=== PATIENT | male | born 1955 | race American Indian/Alaskan Native ===

== ENCOUNTER 2018-03-23 13:07 | Emergency (ER) | payer MEDICARE ==
[~2018-03-23] VITALS: Ht 193 cm; Wt 108.9 kg
[~2018-03-23 13:07] MED LIST: CODE30 PO; CYAN100 PO; ESCI10 PO; FOLI400 PO; GREEN TEA PO; HYDACE5 PO; LORA2 PO; MILK THISTLE PO; MULVITMINF PO; NAPR500 PO; NITR.4SL SL; OXYC5 PO; PYRI100 PO; ZINC15 PO; [UNRECOGNIZED DRUG - OTHER] PO
[2018-03-23] MEDS ORDERED: PROC5 PO (13:40)
== END 2018-03-23 13:58 | disposition home or self-care (01) ==
LOC: ER 13:07
DX: F11.23 Opioid dependence with withdrawal (principal); F10.129 Alcohol abuse with intoxication, unspecified; Z88.8 Allergy status to other drugs, medicaments and biological substances; Z79.899 Other long term (current) drug therapy; F17.290 Nicotine dependence, other tobacco product, uncomplicated
CPT/HCPCS: 99284

== ENCOUNTER 2018-04-05 06:21 | Inpatient (IN) | payer MEDICARE ==
[~2018-04-05] VITALS: Ht 182.9 cm; Wt 98.6 kg
[~2018-04-05 06:21] MED LIST changes: +PROC5 PO
[2018-04-05 07:53] LABS: BASOPHILS ABSOLUTE AUTO 0.02 K/mm3 (0.00-0.23); BASOPHILS PERCENT AUTO 0 % (0-2); EOSINOPHILS PERCENT AUTO 0 % (0-6); Hematocrit 45.3 % (37.0-53.0); Hemoglobin 15.9 g/dL (13.5-17.5); IMMATURE GRAN ABSOLUTE AUTO 0.04 K/mm3 (0.00-0.10); IMMATURE GRAN PERCENT AUTO 1 % (0-1); LYMPHOCYTES ABSOLUTE AUTO 0.67 K/mm3 (0.84-5.20); LYMPHOCYTES PERCENT AUTO 10 % (21-46); MONOCYTES ABSOLUTE AUTO 0.53 K/mm3 (0.16-1.47); MONOCYTES PERCENT AUTO 8 % (4-13); Mean Corpuscular HGB 35.5 pg (26.0-34.0); Mean Corpuscular HGB Conc 35.1 g/dL (31.5-36.5); Mean Corpuscular Volume 101 fL (80-100); Mean Platelet Volume 11.4 fL (9.1-12.4); NEUTROPHILS ABSOLUTE AUTO 5.44 K/mm3 (1.96-9.15); NEUTROPHILS PERCENT AUTO 81 % (41-73); Platelet Count 54 K/mm3 (150-400); RDW Coefficient Variation 15.5 % (11.7-14.2); RDW Standard Deviation 58.3 fL (35.1-46.3); Red Blood Cell Count 4.48 M/mm3 (4.30-5.90)
[2018-04-05 08:09] LABS: Alanine Aminotransfer (ALT/SGP 29 U/L (12-78); Albumin, Blood 3.7 g/dL (3.4-5.0); Albumin/Globulin Ratio 1.1 (0.8-1.8); Alk Phos 110 U/L (50-136); Anion Gap 12 mmol/L (6-16); Aspartate Aminotrans (AST/SGOT 45 U/L (12-37); Bilirubin, Total 2.1 mg/dL (0.1-1.0); Blood Urea Nitrogen 9 mg/dL (8-24); CO2, Blood 21 mmol/L (21-32); CPK Creatine Kinase 242 U/L (39-308); Chloride, Blood 109 mmol/L (98-108); Creatinine, Blood 0.82 mg/dL (0.60-1.20); Globulin, Blood 3.5 g/dL (2.2-4.0); Glomerular Filtration Rate >60 (60-); Glucose, Blood 120 mg/dL (70-99); Potassium, Blood 3.6 mmol/L (3.5-5.5); Sodium, Blood 142 mmol/L (136-145); Total Protein, Blood 7.2 g/dL (6.4-8.2)
[2018-04-05 08:29] LABS: International Normalized Ratio 1.35; Prothrombin Time Results 13.9 Sec (9.7-11.5)
--- NOTE | 2018-04-05 18:51 | NUR ---
PT HAS BEEN STABLE SINCE ADMISSION. ORTHO IN TO CONCULT, NO SURGERY UNTIL SATURDAY DUE TO RESULTS OF BLOOD WORK. PT STATES HE IS CHRONICALLY LOW PLATELETS. CIWA SCORES HAVE BEEN 0-2. CONT IV FLUIDS. PT EATING REG DIET. VOIDING WITH URINAL. PT NEEDS UA COLLECTED. CLEAN URINAL PLACED AT BEDSIDE. PAIN CONTROLLED WITH IV DILAUDID. PT MAY HAVE BUCKS TRACTION PLACED PRN FOR PAIN. PLAN FOR REPEAT IMAGING IN THE AM. PAS PLACED. TELE AFIB/FLUTTER. PT USES CALL LIGHT APPROPRIATELY PRN.
[2018-04-05 21:40] LABS: Bilirubin, Urine Neg (Neg); Blood, Urine 2+ (Neg); Glucose Qualitative, Urine Neg (Neg); Ketones, Urine Neg (Neg); Leukocyte Esterase, Urine 3+ (Neg); Nitrite, Urine Neg (Neg); Protein, Urine Neg (Neg); Urobilinogen, Urine 1+ (Normal)
[2018-04-05 21:51] LABS: Appearance, Urine Cloudy (Clear); Color, Urine Yellow (P-Yellow)
[2018-04-05 21:52] LABS: White Blood Cells, Urine 25-50 /hpf (0-5)
[2018-04-05 21:53] LABS: Bacteria Many /hpf; Squamous Epithelial Cells Rare /hpf (Few)
--- NOTE | 2018-04-06 02:17 | NUR ---
REPORT GIVEN TO FABBY JUDD WHO WILL BE RESUMING CARE OF PATIENT.
--- NOTE | 2018-04-06 02:41 | NUR ---
APPROX. 0215, REPORT FROM OS, RN. PT ASSESSED, PAIN AND NAUSEA MANGED PER EMAR. CALL LIGHT IN REACH. WCTM.
--- NOTE | 2018-04-06 04:50 | NUR ---
SHIFT SUMMARY RECEIVED REPORT AND ASSUMED CARE OF PT APPROX. 0200. PAIN IN LLE MANAGED PER EMAR. PPP X4; PER PT N/T IN FEET BASELINE. NAUSEA MANGED PER EMAR. BLE ELEVATED; PT ENCOURAGED TO MAKE ADJUSTMENTS TO POSITION TO PREVENT PRESSURE WOUNDS; ASSISTED PRN. RA, MINIES SOB AND CP; TELEMETRY IN PLACE, A FLUTTER PER STORE PROTECTION SPECIALIST. CALL LIGHT IN REACH; PT DEMONSTRATES USE. SIDE RAILS X3 FOR SAFETY. WCTM UNTIL REPORT TO DAY SHIFT RN.
[2018-04-06 06:29] LABS: BASOPHILS ABSOLUTE AUTO 0.03 K/mm3 (0.00-0.23); BASOPHILS PERCENT AUTO 1 % (0-2); EOSINOPHILS ABSOLUTE AUTO 0.08 K/mm3 (0.00-0.68); EOSINOPHILS PERCENT AUTO 2 % (0-6); Hematocrit 36.6 % (37.0-53.0); Hemoglobin 12.7 g/dL (13.5-17.5); IMMATURE GRAN ABSOLUTE AUTO 0.01 K/mm3 (0.00-0.10); IMMATURE GRAN PERCENT AUTO 0 % (0-1); LYMPHOCYTES ABSOLUTE AUTO 1.24 K/mm3 (0.84-5.20); LYMPHOCYTES PERCENT AUTO 29 % (21-46); MONOCYTES ABSOLUTE AUTO 0.71 K/mm3 (0.16-1.47); MONOCYTES PERCENT AUTO 17 % (4-13); Mean Corpuscular HGB 34.8 pg (26.0-34.0); Mean Corpuscular HGB Conc 34.7 g/dL (31.5-36.5); Mean Corpuscular Volume 100 fL (80-100); Mean Platelet Volume 11.2 fL (9.1-12.4); NEUTROPHILS PERCENT AUTO 52 % (41-73); RDW Coefficient Variation 15.5 % (11.7-14.2); RDW Standard Deviation 56.8 fL (35.1-46.3); Red Blood Cell Count 3.65 M/mm3 (4.30-5.90); White Blood Cell Count 4.27 K/mm3 (4.00-11.30)
[2018-04-06 06:42] LABS: International Normalized Ratio 1.41; Prothrombin Time Results 14.5 Sec (9.7-11.5)
[2018-04-06 06:43] LABS: Anion Gap 6 mmol/L (6-16); Blood Urea Nitrogen 8 mg/dL (8-24); Bun/Creatinine Ratio 10.3 (12.0-20.0); CO2, Blood 29 mmol/L (21-32); Calcium, Blood 7.7 mg/dL (8.5-10.1); Chloride, Blood 103 mmol/L (98-108); Creatinine, Blood 0.78 mg/dL (0.60-1.20); Glomerular Filtration Rate >60 (60-); Glucose, Blood 108 mg/dL (70-99); Potassium, Blood 3.8 mmol/L (3.5-5.5); Sodium, Blood 138 mmol/L (136-145)
[2018-04-06 07:16] LABS: Platelet Count 37 K/mm3 (150-400)
--- NOTE | 2018-04-06 07:50 | NUR ---
CRITICAL PLT VALUE. RECENTLY RECIEVED CRITICAL PLT VALUE OF 37 PER HS METAL PICKLING EQUIPMENT OPERATOR H.H.. DR ROY NOTIFIED. NO NEW ORDERS.
[2018-04-06 08:29] LABS: BASOPHILS ABSOLUTE AUTO 0.03 K/mm3 (0.00-0.23); BASOPHILS PERCENT AUTO 1 % (0-2); EOSINOPHILS PERCENT AUTO 2 % (0-6); Hematocrit 37.1 % (37.0-53.0); Hemoglobin 12.9 g/dL (13.5-17.5); IMMATURE GRAN ABSOLUTE AUTO 0.01 K/mm3 (0.00-0.10); IMMATURE GRAN PERCENT AUTO 0 % (0-1); LYMPHOCYTES ABSOLUTE AUTO 1.28 K/mm3 (0.84-5.20); LYMPHOCYTES PERCENT AUTO 31 % (21-46); MONOCYTES ABSOLUTE AUTO 0.68 K/mm3 (0.16-1.47); MONOCYTES PERCENT AUTO 16 % (4-13); Mean Corpuscular HGB 35.2 pg (26.0-34.0); Mean Corpuscular HGB Conc 34.8 g/dL (31.5-36.5); Mean Corpuscular Volume 101 fL (80-100); Mean Platelet Volume 11.1 fL (9.1-12.4); NEUTROPHILS PERCENT AUTO 50 % (41-73); RDW Coefficient Variation 15.3 % (11.7-14.2); RDW Standard Deviation 57.2 fL (35.1-46.3); Red Blood Cell Count 3.66 M/mm3 (4.30-5.90)
[2018-04-06 08:49] LABS: Platelet Count 36 K/mm3 (150-400)
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
--- NOTE | 2018-04-06 10:54 | NUR ---
DR MATSON HERE. DISCUSSED PT'S STATUS AND LABS.
--- NOTE | 2018-04-06 14:00 | NUR ---
DR ROY HERE TO SEE PT.
[2018-04-06 14:36] LABS: BASOPHILS ABSOLUTE AUTO 0.03 K/mm3 (0.00-0.23); BASOPHILS PERCENT AUTO 1 % (0-2); EOSINOPHILS ABSOLUTE AUTO 0.12 K/mm3 (0.00-0.68); EOSINOPHILS PERCENT AUTO 3 % (0-6); Hematocrit 33.9 % (37.0-53.0); Hemoglobin 12.1 g/dL (13.5-17.5); IMMATURE GRAN PERCENT AUTO 0 % (0-1); LYMPHOCYTES ABSOLUTE AUTO 0.97 K/mm3 (0.84-5.20); LYMPHOCYTES PERCENT AUTO 28 % (21-46); MONOCYTES PERCENT AUTO 17 % (4-13); Mean Corpuscular HGB 36.1 pg (26.0-34.0); Mean Corpuscular HGB Conc 35.7 g/dL (31.5-36.5); Mean Corpuscular Volume 101 fL (80-100); Mean Platelet Volume 11.1 fL (9.1-12.4); NEUTROPHILS ABSOLUTE AUTO 1.78 K/mm3 (1.96-9.15); NEUTROPHILS PERCENT AUTO 51 % (41-73); RDW Coefficient Variation 15.3 % (11.7-14.2); RDW Standard Deviation 57.4 fL (35.1-46.3); Red Blood Cell Count 3.35 M/mm3 (4.30-5.90)
[2018-04-06 14:42] LABS: Platelet Count 31 K/mm3 (150-400)
--- NOTE | 2018-04-06 15:13 | NUR ---
ECHO BEING COMPLETED.
--- NOTE | 2018-04-06 18:00 | NUR ---
SHIFT SUMMARY PT EATING AND DRINKING.PT VOIDING. PT BEEN ASSISTED WITH ADL'S PRN. PT BEEN SEEN BY HOSPITALIST AND DR MATSON TODAY. PT HAVING CRITICAL LOW PLT, 'S AWARE. PT TO BE NPO AFTER MIDNIGHT, PT AWARE, WRITTEN ON BOARD AND SIGN OUTSIDE ROOM. PT BEEN MED FOR PAIN. PT REPOSITIONING SELF IN BED USING OVERHEAD TRAPEZE.
--- NOTE | 2018-04-06 19:10 | NUR ---
NOTIFIED BY TELE OF RECENT EPISODE OF V-TACH OF 11 B. PT ASYMPTOMATIC. VS WNL. NOTIFIED. NO NEW ORDERS. WILL CONTINUE TO [facility].
[2018-04-06 20:09] LABS: BASOPHILS ABSOLUTE AUTO 0.02 K/mm3 (0.00-0.23); BASOPHILS PERCENT AUTO 1 % (0-2); EOSINOPHILS ABSOLUTE AUTO 0.11 K/mm3 (0.00-0.68); EOSINOPHILS PERCENT AUTO 3 % (0-6); Hematocrit 35.5 % (37.0-53.0); Hemoglobin 12.6 g/dL (13.5-17.5); IMMATURE GRAN PERCENT AUTO 0 % (0-1); LYMPHOCYTES ABSOLUTE AUTO 0.71 K/mm3 (0.84-5.20); LYMPHOCYTES PERCENT AUTO 20 % (21-46); MONOCYTES ABSOLUTE AUTO 0.56 K/mm3 (0.16-1.47); MONOCYTES PERCENT AUTO 16 % (4-13); Mean Corpuscular HGB 36.4 pg (26.0-34.0); Mean Corpuscular HGB Conc 35.5 g/dL (31.5-36.5); Mean Corpuscular Volume 103 fL (80-100); Mean Platelet Volume 11.5 fL (9.1-12.4); NEUTROPHILS ABSOLUTE AUTO 2.14 K/mm3 (1.96-9.15); NEUTROPHILS PERCENT AUTO 60 % (41-73); RDW Coefficient Variation 15.3 % (11.7-14.2); RDW Standard Deviation 57.5 fL (35.1-46.3); Red Blood Cell Count 3.46 M/mm3 (4.30-5.90); White Blood Cell Count 3.54 K/mm3 (4.00-11.30)
[2018-04-06 20:15] LABS: Platelet Count 33 K/mm3 (150-400)
[2018-04-06 20:25] LABS: Magnesium, Blood 1.5 mg/dL (1.6-2.4); Potassium, Blood 3.9 mmol/L (3.5-5.5)
[2018-04-07 04:14] LABS: BASOPHILS ABSOLUTE AUTO 0.03 K/mm3 (0.00-0.23); BASOPHILS PERCENT AUTO 1 % (0-2); EOSINOPHILS ABSOLUTE AUTO 0.15 K/mm3 (0.00-0.68); EOSINOPHILS PERCENT AUTO 4 % (0-6); Hematocrit 34.2 % (37.0-53.0); IMMATURE GRAN ABSOLUTE AUTO 0.01 K/mm3 (0.00-0.10); IMMATURE GRAN PERCENT AUTO 0 % (0-1); LYMPHOCYTES ABSOLUTE AUTO 1.22 K/mm3 (0.84-5.20); LYMPHOCYTES PERCENT AUTO 28 % (21-46); MONOCYTES ABSOLUTE AUTO 0.63 K/mm3 (0.16-1.47); MONOCYTES PERCENT AUTO 15 % (4-13); Mean Corpuscular HGB 35.7 pg (26.0-34.0); Mean Corpuscular HGB Conc 35.1 g/dL (31.5-36.5); Mean Corpuscular Volume 102 fL (80-100); Mean Platelet Volume 11.3 fL (9.1-12.4); NEUTROPHILS ABSOLUTE AUTO 2.29 K/mm3 (1.96-9.15); NEUTROPHILS PERCENT AUTO 53 % (41-73); RDW Coefficient Variation 15.1 % (11.7-14.2); RDW Standard Deviation 56.5 fL (35.1-46.3); Red Blood Cell Count 3.36 M/mm3 (4.30-5.90); White Blood Cell Count 4.33 K/mm3 (4.00-11.30)
[2018-04-07 04:37] LABS: Platelet Count 37 K/mm3 (150-400)
[2018-04-07 04:48] LABS: International Normalized Ratio 1.26; Prothrombin Time Results 13.1 Sec (9.7-11.5)
--- NOTE | 2018-04-07 04:52 | NUR ---
SHIFT SUMMARY: PT HAS DONE WELL THIS SHIFT. NPO FOR POSSIBLE SURGERY TODAY. PAIN MANAGED WITH DILAUDID Q2 PER EMAR. CIWA'S AT 2. PT REPOSITIONING SELF USING OVERHEAD TRAPEZE. VOIDING WELL USING URINAL. DR AWARE OF RECENT LOW PLT COUNTS. MOST RECENT AT 37. PLAN TO INFUSE 2 UNITS PRE-OP. PT RIPPED DNR WRISTBAND OFF AND REPORTS NOT WANTING TO BE A DNR ANYMORE. WILL DISCUSS WITH TEAM.
[2018-04-07 04:55] LABS: Alanine Aminotransfer (ALT/SGP 21 U/L (12-78); Albumin, Blood 2.7 g/dL (3.4-5.0); Alk Phos 88 U/L (50-136); Anion Gap 7 mmol/L (6-16); Aspartate Aminotrans (AST/SGOT 32 U/L (12-37); Blood Urea Nitrogen 9 mg/dL (8-24); Bun/Creatinine Ratio 11.2 (12.0-20.0); CO2, Blood 30 mmol/L (21-32); Calcium, Blood 7.7 mg/dL (8.5-10.1); Chloride, Blood 103 mmol/L (98-108); Creatinine, Blood 0.81 mg/dL (0.60-1.20); Globulin, Blood 2.8 g/dL (2.2-4.0); Glomerular Filtration Rate >60 (60-); Glucose, Blood 103 mg/dL (70-99); Potassium, Blood 4.1 mmol/L (3.5-5.5); Sodium, Blood 140 mmol/L (136-145); Total Protein, Blood 5.5 g/dL (6.4-8.2)
--- NOTE | 2018-04-07 11:07 | NUR ---
Patient was lying in bed and alert when I entered the patient's room. I introduced myself and patient seemed genuinely pleased to have a visit from spiritual care. Patient stated that he was nerveous about his upcoming surgery. I listened empathically, conducted a brief life review and then the doctor came in and I cut our visit short. I visited another patient and returned and provided prayer for patient's upcoming surgery. Patient also prayed for me. Patient showed signs of reduced stress and expressed gratitude for the visit.
--- NOTE | 2018-04-07 11:48 | NUR ---
PT MEDICATED WITH 1MG DILAUDID IV PER ORDERS. PT STATES PAIN IS 10/10. ABX STARTED. CALL LIGHT IN REACH. PT REQUESTING SOME NEOSPORIN AND DRESSING FOR SORE TO LEFT FA. WILL PROVIDE. WILL CONT TO MONITOR.
--- NOTE | 2018-04-07 18:57 | NUR ---
SHIFT SUMMARY PAIN HAS BEEN ELEVATED THIS SHIFT. PT HAS REQUIRED IV AND PO PAIN MEDICATION. CIWA SCORE 8 THIS AFTERNOON AND PT WAS GIVEN ATIVAN. PT MAY HAVE SURGERY TOMORROW AND WILL BE NPO AFTER MN. OXIMETRY IN PLACE FOR HIGH RISK PAIN MANAGEMENT. VSS. WILL MONITOR UNTIL REPORT TO ONCOMING RN.
--- NOTE | 2018-04-08 00:01 | NUR ---
0001: PT APPEARS RELAXED AND COMFORTABLE AFTER 1MG IV DILAUDID AT 2306 AND IS SLEEPING SUPINE WITH HOB SLIGHTLY ELEVATED. MAINTAINS CIWA SCORE OF 6.
--- NOTE | 2018-04-08 04:37 | NUR ---
0437: TELEMETRY LEADS AND STICKERS REPLACED AFTER RN NOTIFIED BY RIBBER. PT STATES HE HAS BEEN SHIFTING FOR COMFORT FREQUENTLY.
--- NOTE | 2018-04-08 09:34 | NUR ---
Patient gave consent for student nurse, Magdy Thomas to help with his care today, 04/08/18.
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
--- NOTE | 2018-04-08 10:41 | NUR ---
PERMISSION PATIENT GAVE PERMISSION FOR ME TO CARE FOR THEM ON 04/08/18 FROM [phone].
--- NOTE | 2018-04-08 11:05 | NUR ---
PT MEDICATED WITH DILAUDID 1MG IV PER ORDERS. URINAL EMPTIED. CALL LIGHT IN REACH.
--- NOTE | 2018-04-08 12:15 | NUR ---
TRANSFERED TO DAY SURGERY VIA BED AT 1213.
--- NOTE | 2018-04-08 12:20 | NUR ---
Surgical site prepped with 2% Chlorhexidine cloth wipe. No hair noted to clip.
--- NOTE | 2018-04-08 12:35 | NUR ---
PT TAKEN TO DAY SURGERY AT APPROXIMATELY 1207. FIRST UNIT OF PLATELETS STARTED. HOLLEY Sullivan RN REPORTED SECOND UNIT WOULD BE GIVEN IN OR.
--- NOTE | 2018-04-08 12:38 | NUR ---
History, Chart, Medications and Allergies reviewed before start of procedure. Patient confirms NPO status and agrees with scheduled surgery.
--- NOTE | 2018-04-08 16:13 | NUR ---
CONFUSED PULLING AT LINES RUBBING AT FACE SHIVERING WARM BLANKETS FOR COMFORT DID OPEN HIS EYES AND QUIT RUBBING HIS FACE WHEN I GOT HIM TO OPEN EYES AND LOOK AT ME . DOES STOP SHIVERING WHEN I AM ABLE CALM HIM DOWN WITH DEEP BREATHING
[2018-04-08 16:14] LABS: BASOPHILS ABSOLUTE AUTO 0.03 K/mm3 (0.00-0.23); BASOPHILS PERCENT AUTO 1 % (0-2); EOSINOPHILS ABSOLUTE AUTO 0.22 K/mm3 (0.00-0.68); EOSINOPHILS PERCENT AUTO 5 % (0-6); Hematocrit 32.1 % (37.0-53.0); Hemoglobin 11.1 g/dL (13.5-17.5); IMMATURE GRAN ABSOLUTE AUTO 0.02 K/mm3 (0.00-0.10); IMMATURE GRAN PERCENT AUTO 1 % (0-1); LYMPHOCYTES ABSOLUTE AUTO 0.76 K/mm3 (0.84-5.20); LYMPHOCYTES PERCENT AUTO 19 % (21-46); MONOCYTES ABSOLUTE AUTO 0.47 K/mm3 (0.16-1.47); MONOCYTES PERCENT AUTO 12 % (4-13); Mean Corpuscular HGB 35.5 pg (26.0-34.0); Mean Corpuscular HGB Conc 34.6 g/dL (31.5-36.5); Mean Corpuscular Volume 103 fL (80-100); Mean Platelet Volume 9.9 fL (9.1-12.4); NEUTROPHILS PERCENT AUTO 63 % (41-73); Platelet Count 80 K/mm3 (150-400); RDW Standard Deviation 59.5 fL (35.1-46.3); Red Blood Cell Count 3.13 M/mm3 (4.30-5.90)
--- NOTE | 2018-04-08 16:30 | NUR ---
MOVES ALL EXTREMITIES HE IS THRASHING ABOUT
--- NOTE | 2018-04-08 17:54 | NUR ---
PT DID HAVE PAS AND [place] HOSE IN PLACE
--- NOTE | 2018-04-08 17:59 | NUR ---
SUMMARY ASSUMED CARE OF PT POST OP, ARRIVED FROM PACU VIA BED, DROWSY, MOANS AND GROANS, APPEARS TO BE COMFORTABLE AT THIS TIME, MONITOR VS, REPORT TO NOC RN.
--- NOTE | 2018-04-09 00:54 | NUR ---
PT W/ 102F FEVER, HEAT TURNED DOWN, BLANKETS REMOVED, COOL CLOTH TO FOREHEAD. CALLED DR. GUAMAN, ORDERED TYLENOL FOR FEVER, APPROVED DESPITE PT'S HX OF HEP C BECAUSE HE STATED CIRRHOSIS PTS CAN HAVE UP TO 3.5 GRAMS OF TYLENOL DAILY WITHOUT ILL EFFECTS.
[2018-04-09 05:41] LABS: BASOPHILS ABSOLUTE AUTO 0.04 K/mm3 (0.00-0.23); BASOPHILS PERCENT AUTO 1 % (0-2); EOSINOPHILS ABSOLUTE AUTO 0.09 K/mm3 (0.00-0.68); EOSINOPHILS PERCENT AUTO 1 % (0-6); Hematocrit 32.6 % (37.0-53.0); Hemoglobin 11.4 g/dL (13.5-17.5); IMMATURE GRAN ABSOLUTE AUTO 0.01 K/mm3 (0.00-0.10); IMMATURE GRAN PERCENT AUTO 0 % (0-1); LYMPHOCYTES ABSOLUTE AUTO 0.48 K/mm3 (0.84-5.20); LYMPHOCYTES PERCENT AUTO 8 % (21-46); MONOCYTES ABSOLUTE AUTO 0.63 K/mm3 (0.16-1.47); MONOCYTES PERCENT AUTO 10 % (4-13); Mean Corpuscular HGB 35.3 pg (26.0-34.0); Mean Corpuscular Volume 101 fL (80-100); Mean Platelet Volume 10.1 fL (9.1-12.4); NEUTROPHILS ABSOLUTE AUTO 5.17 K/mm3 (1.96-9.15); NEUTROPHILS PERCENT AUTO 81 % (41-73); Platelet Count 77 K/mm3 (150-400); RDW Standard Deviation 58.4 fL (35.1-46.3); Red Blood Cell Count 3.23 M/mm3 (4.30-5.90); White Blood Cell Count 6.42 K/mm3 (4.00-11.30)
[2018-04-09 05:50] LABS: International Normalized Ratio 1.19; Prothrombin Time Results 12.4 Sec (9.7-11.5)
[2018-04-09 06:04] LABS: Alanine Aminotransfer (ALT/SGP 18 U/L (12-78); Albumin, Blood 2.6 g/dL (3.4-5.0); Albumin/Globulin Ratio 0.9 (0.8-1.8); Alk Phos 71 U/L (50-136); Anion Gap 6 mmol/L (6-16); Aspartate Aminotrans (AST/SGOT 29 U/L (12-37); Bilirubin, Total 3.1 mg/dL (0.1-1.0); Blood Urea Nitrogen 11 mg/dL (8-24); CO2, Blood 27 mmol/L (21-32); Calcium, Blood 7.5 mg/dL (8.5-10.1); Chloride, Blood 105 mmol/L (98-108); Creatinine, Blood 0.79 mg/dL (0.60-1.20); Glomerular Filtration Rate >60 (60-); Glucose, Blood 99 mg/dL (70-99); Magnesium, Blood 1.8 mg/dL (1.6-2.4); Potassium, Blood 4.4 mmol/L (3.5-5.5); Sodium, Blood 138 mmol/L (136-145); Total Protein, Blood 5.6 g/dL (6.4-8.2)
--- NOTE | 2018-04-09 07:58 | NUR ---
SHIFT SUMMARY PT IS POD 1 LEFT HIP REPAIR. HE HAD POSITIVE CIWAS DURING THE NIGHT, WITH AUDITORY HALLUCINATIONS, TREMORS, AGITATION AND ANXIETY. HE ALSO SPIKED A FEVER OVERNIGHT AND REQUIRED TYLENOL AND NONPHARM INTERVENTIONS. ATTENDS IN PLACE FOR INCONTINENCE. PT IS UNWILLING TO ASSIST WITH ROLLING OR REPOSITIONING. TELE WAS AFIB IN THE 70S. AQUACEL C/D/I. ABX RAN PER ORDERS. PT GIVEN SCHEDULED LIBRIUM AND ATIVAN X1, MEDICATED FOR PAIN PER EMAR. REPORT PASSED TO ONCOMING SHIFT.
--- NOTE | 2018-04-09 10:20 | NUR ---
DR EL HERE RECENTLY. REPORTS TO D/C TELE AND TO HOLD PO MEDS AT THIS TIME UNTIL PT MORE AWAKE.
--- NOTE | 2018-04-09 16:17 | NUR ---
PT MED WITHOUT DIFF WITH ASP PRECAUTIONS IN PLACE.
--- NOTE | 2018-04-09 17:02 | NUR ---
Patient granted me permission to care for him 04/08/18 at 3430
--- NOTE | 2018-04-09 18:39 | NUR ---
Pt gave verbal permission for student to provide care tomorrow.
--- NOTE | 2018-04-10 06:37 | NUR ---
SHIFT SUMMARY: PT POD #3 FOR L HIP REPAIR. TEMP SLIGHTLY ELEVATED IN BEGINNING OF SHIFT. GIVEN TYLENOL PER EMAR. PAIN MANAGED WITH OXY 10MG. GIVEN DILAUDID ONCE. INCONTINENT X2. USING URINAL AT BEDSIDE. GIVEN SCHED LIBRIUM ONCE; SOME HALLUCINATIONS IN BEGINNING OF SHIFT WITH HIGHEST CIWA OF 4. CIWA BACK DOWN TO 2 WITH BASELINE TREMORS.
--- NOTE | 2018-04-10 09:47 | NUR ---
PJ HERE TO SEE PT.
--- NOTE | 2018-04-10 10:39 | NUR ---
DR EL REPORTS WILL UPDATE D/C TELE ORDER FOR YESTERDAY.
--- NOTE | 2018-04-10 11:41 | NUR ---
Patient was sitting up eating breakfast when I walked in the patient's room. Patient welcomed me in. Patient's long time friend Dustin was visiting. I helped patient with his food (opneing packets, cleaning up messes and getting creamer), I provided companionship, laughter and prayer. Patient expressed gratitude and showed signs of an elevated mood.
--- NOTE | 2018-04-10 14:20 | NUR ---
OTHER FABBY JUARES GIVEN REPORT AND IS ASSUMING CARE OF PT AT THIS TIME.
--- NOTE | 2018-04-10 15:35 | NUR ---
THIS RN BEEN GIVEN UPDATE ON PT AND IS ASSUMING CARE OF PT AT THIS TIME.
--- NOTE | 2018-04-10 17:55 | NUR ---
SHIFT SUMMARY PT A/O TODAY. HAD H/A EARLIER TODAY WHICH HAS RESOLVED. PT BEEN ASSISTED WITH ADL'S PRN. PT BEEN REPOSITIONED WHEN IN BED. PT WAS UP TO CHAIR TODAY FOR SEVERAL HOURS. PT EATING AND DRINKING WELL. PT CONT BIOX IN PLACE. PT BEEN MED FOR PAIN PRN. PT HAS PAS IN PLACE. HEEL PROTECTORS AND MEPILEX TO BOTTOM. PT HAS ATTENDS IN PLACE IN CASE PT DOES NOT USE URINAL. BED ALARM IN PLACE. SIDE RAILS X3. CALL LIGHT AND PHONE IN REACH. PT EATING WITH HOB ELEVATED WITH ASSIST CUTTING UP DINNER. PT WORKED WITH THERAPY TODAY.
[2018-04-11 04:48] LABS: BASOPHILS ABSOLUTE AUTO 0.03 K/mm3 (0.00-0.23); BASOPHILS PERCENT AUTO 1 % (0-2); EOSINOPHILS ABSOLUTE AUTO 0.25 K/mm3 (0.00-0.68); EOSINOPHILS PERCENT AUTO 5 % (0-6); Hemoglobin 10.8 g/dL (13.5-17.5); IMMATURE GRAN ABSOLUTE AUTO 0.01 K/mm3 (0.00-0.10); IMMATURE GRAN PERCENT AUTO 0 % (0-1); LYMPHOCYTES ABSOLUTE AUTO 1.07 K/mm3 (0.84-5.20); LYMPHOCYTES PERCENT AUTO 22 % (21-46); MONOCYTES ABSOLUTE AUTO 0.54 K/mm3 (0.16-1.47); MONOCYTES PERCENT AUTO 11 % (4-13); Mean Corpuscular HGB 35.6 pg (26.0-34.0); Mean Corpuscular HGB Conc 34.8 g/dL (31.5-36.5); Mean Corpuscular Volume 102 fL (80-100); Mean Platelet Volume 10.6 fL (9.1-12.4); NEUTROPHILS ABSOLUTE AUTO 2.92 K/mm3 (1.96-9.15); NEUTROPHILS PERCENT AUTO 61 % (41-73); Platelet Count 75 K/mm3 (150-400); RDW Coefficient Variation 15.8 % (11.7-14.2); RDW Standard Deviation 57.7 fL (35.1-46.3); Red Blood Cell Count 3.03 M/mm3 (4.30-5.90); White Blood Cell Count 4.82 K/mm3 (4.00-11.30)
[2018-04-11 05:10] LABS: Alanine Aminotransfer (ALT/SGP 16 U/L (12-78); Albumin, Blood 2.4 g/dL (3.4-5.0); Albumin/Globulin Ratio 0.8 (0.8-1.8); Alk Phos 69 U/L (50-136); Anion Gap 6 mmol/L (6-16); Aspartate Aminotrans (AST/SGOT 33 U/L (12-37); Bilirubin, Total 1.8 mg/dL (0.1-1.0); Blood Urea Nitrogen 11 mg/dL (8-24); Bun/Creatinine Ratio 13.2 (12.0-20.0); CO2, Blood 28 mmol/L (21-32); Calcium, Blood 7.9 mg/dL (8.5-10.1); Chloride, Blood 104 mmol/L (98-108); Creatinine, Blood 0.83 mg/dL (0.60-1.20); Globulin, Blood 3.2 g/dL (2.2-4.0); Glomerular Filtration Rate >60 (60-); Glucose, Blood 104 mg/dL (70-99); Potassium, Blood 3.7 mmol/L (3.5-5.5); Sodium, Blood 138 mmol/L (136-145); Total Protein, Blood 5.6 g/dL (6.4-8.2)
--- NOTE | 2018-04-11 08:11 | NUR ---
SHIFT SUMMARY: PT POD #3 FOR L HIP. A&0X4. CIWAS STABLE RANGING FROM 0-2. PT REPOSITIONED FREQ. MEPILEX ON COCCYX AND HEALS PREVENTATIVE. DRINKING PO FLUIDS AND VOIDING WELL. INCONTINENT X2. OTHERWISE USING URINAL. ATTENDS IN PLACE. PAIN MANAGED WITH OXY 10 MG. GIVEN 1MG DILAUDID X1. NEEDS ASSISTANCE WITH REPOSITIONING IN BED. OOB TO CHAIR WITH 3 MAX ASSIST YESTERDAY FOR DAY SHIFT. STAYED IN BED T/O NIGHT.
--- NOTE | 2018-04-11 10:23 | NUR ---
PT SITTING IN CHAIR, FALLS ASLEEP EASILY. PT MEDICATED WITH SCHEDULED MEDS AND PAIN MEDS PER ORDERS FOR PRIMARY RN. CALL LIGHT IN REACH.
--- NOTE | 2018-04-11 12:39 | NUR ---
pt sitting up in chair, appears asleep, wakes to voice. vicki.
--- NOTE | 2018-04-11 13:52 | NUR ---
pt sitting in chair. appears to be sleeping. nadn. wakes with verbal stimuli.
--- NOTE | 2018-04-11 17:56 | NUR ---
SHIFT SUMMARY PT A&OX4, VSS, CIWAS STABLE WD. POD3 L LILIBETH, AQUACEL CDI, CHANGED TODAY.ICE ON. PAIN MANAGED PER EMAR. ADDISON PO FINGER FOODS, LOW PO INTAKE. STAND/PIVOT FWW/GB 2 PP MOD ASSIST TO CHAIR AND BACK TO BED. SAT IN CHAIR T/O SHIFT. INCONTINENT WEARS ATTENDS, OCC USES URINAL. VOIDING WELL. MEPILEX ON COCCYX AND HEELS. WILL CTM & TX PER EMAR UNTIL REPORT GIVEN TO ONCOMING NOC RN.
[2018-04-12 05:35] LABS: BASOPHILS ABSOLUTE AUTO 0.02 K/mm3 (0.00-0.23); BASOPHILS PERCENT AUTO 1 % (0-2); EOSINOPHILS ABSOLUTE AUTO 0.32 K/mm3 (0.00-0.68); EOSINOPHILS PERCENT AUTO 9 % (0-6); Hematocrit 29.1 % (37.0-53.0); Hemoglobin 10.1 g/dL (13.5-17.5); IMMATURE GRAN ABSOLUTE AUTO 0.01 K/mm3 (0.00-0.10); IMMATURE GRAN PERCENT AUTO 0 % (0-1); LYMPHOCYTES ABSOLUTE AUTO 0.68 K/mm3 (0.84-5.20); LYMPHOCYTES PERCENT AUTO 18 % (21-46); MONOCYTES ABSOLUTE AUTO 0.49 K/mm3 (0.16-1.47); MONOCYTES PERCENT AUTO 13 % (4-13); Mean Corpuscular HGB 34.7 pg (26.0-34.0); Mean Corpuscular HGB Conc 34.7 g/dL (31.5-36.5); Mean Corpuscular Volume 100 fL (80-100); Mean Platelet Volume 10.7 fL (9.1-12.4); NEUTROPHILS ABSOLUTE AUTO 2.24 K/mm3 (1.96-9.15); NEUTROPHILS PERCENT AUTO 60 % (41-73); Platelet Count 80 K/mm3 (150-400); RDW Coefficient Variation 15.8 % (11.7-14.2); RDW Standard Deviation 57.1 fL (35.1-46.3); Red Blood Cell Count 2.91 M/mm3 (4.30-5.90); White Blood Cell Count 3.76 K/mm3 (4.00-11.30)
--- NOTE | 2018-04-12 05:47 | NUR ---
SHIFT SUMMARY PT IS POD 4 LEFT LILIBETH AFTER GLF. PLAN IS FOR SNF PLACEMENT ON SATURDAY. HE HAS BEEN MORE ALERT AND ORIENTED, ABLE TO MAKE NEEDS KNOWN MORE FREQUENTLY. PT IS 2 ASSIST FOR SHORT TRANSFERS. HE WAS ABLE TO USE THE URINAL TO VOID THE MAJORITY OF THE TIME LAST NIGHT. MEDICATED FOR PAIN PER EMAR. AQUACEL TO LEFT HIP C/D/I. PT TOOK AN ENSURE SUPPLEMENT AT HS. WILL CTM UNTIL PASS TO NEXT SHIFT.
[2018-04-12 06:09] LABS: Alanine Aminotransfer (ALT/SGP 19 U/L (12-78); Albumin, Blood 2.2 g/dL (3.4-5.0); Albumin/Globulin Ratio 0.7 (0.8-1.8); Alk Phos 71 U/L (50-136); Anion Gap 7 mmol/L (6-16); Aspartate Aminotrans (AST/SGOT 31 U/L (12-37); Bilirubin, Total 1.3 mg/dL (0.1-1.0); Blood Urea Nitrogen 11 mg/dL (8-24); Bun/Creatinine Ratio 15.6 (12.0-20.0); CO2, Blood 26 mmol/L (21-32); Calcium, Blood 7.6 mg/dL (8.5-10.1); Chloride, Blood 106 mmol/L (98-108); Glomerular Filtration Rate >60 (60-); Glucose, Blood 128 mg/dL (70-99); Potassium, Blood 3.7 mmol/L (3.5-5.5); Sodium, Blood 139 mmol/L (136-145); Total Protein, Blood 5.2 g/dL (6.4-8.2)
--- NOTE | 2018-04-12 17:55 | NUR ---
SHIFT SUMMARY PO PAIN MEDICATION HAS BEEN GIVEN TO HELP MANAGE PAIN. PT CONSISTANTLY REPORTS PAIN HIGH ON THE PAIN SCALE. PT REQUESTED INCREASED PAIN MEDICATION WHICH WAS DECLINED BY DR. EL. PT IS DROWSY BETWEEN PAIN PILLS AND HAS SLEPT FOR MUCH OF THE DAY. PT IS ABLE TO REPOSITION HIMSELF INDEPEDENTLY IN THE BED. HE IS A 2 PERSON MODERATE ASSIST TO STAND AT THE EDGE OF THE BED. VSS. WILL MONITOR UNTIL REPORT TO ONCOMING RN.
--- NOTE | 2018-04-12 19:00 | NUR ---
recvd report from previous shift rn mily, pt sitting up in bed a/0x 4, call light within reach, bed in lowest position, bed rails up x 3, eating dinner
--- NOTE | 2018-04-13 04:39 | NUR ---
SHIFT SUMMARY: VSS, NO ACUTE CHANGES, PT REMAINED A/0 X 4, PLEASANT, SLOW TO RESPOND BUT APPROPRIATE. PT EXHIBITS SLIGHT HAND TREMOR, ABLE TO FEED HIMSELF. NO ANXIETY. PT REPORTS PAIN CONTROL "TOLERABLE", APPEARS TO BE ABLE TO FALL ASLEEP T/O THE SHIFT. PT USED URINAL WITH URINE OUTPUT >600 ML THIS SHIFT. PT TOLERATED PO INTAKE, NO N/V. PT ABLE TO MINIMALLY ASSIST IN REPOSITIONING AND TURNS. CHANGED AQUACEL DRESSING THE PREVIOUS DRESSING ROLLED UP FROM DISTAL END APPROX 3", EXPOSING INCISION. GOOD COLOR/CIRCULATION/PULSES TO AFFECTED EXTREMITY
[2018-04-13 04:53] LABS: BASOPHILS ABSOLUTE AUTO 0.02 K/mm3 (0.00-0.23); BASOPHILS PERCENT AUTO 1 % (0-2); EOSINOPHILS ABSOLUTE AUTO 0.19 K/mm3 (0.00-0.68); EOSINOPHILS PERCENT AUTO 6 % (0-6); Hematocrit 27.9 % (37.0-53.0); Hemoglobin 9.5 g/dL (13.5-17.5); IMMATURE GRAN ABSOLUTE AUTO 0.01 K/mm3 (0.00-0.10); IMMATURE GRAN PERCENT AUTO 0 % (0-1); LYMPHOCYTES ABSOLUTE AUTO 0.79 K/mm3 (0.84-5.20); LYMPHOCYTES PERCENT AUTO 25 % (21-46); MONOCYTES ABSOLUTE AUTO 0.43 K/mm3 (0.16-1.47); MONOCYTES PERCENT AUTO 13 % (4-13); Mean Corpuscular HGB 34.3 pg (26.0-34.0); Mean Corpuscular HGB Conc 34.1 g/dL (31.5-36.5); Mean Corpuscular Volume 101 fL (80-100); Mean Platelet Volume 10.7 fL (9.1-12.4); NEUTROPHILS ABSOLUTE AUTO 1.79 K/mm3 (1.96-9.15); NEUTROPHILS PERCENT AUTO 55 % (41-73); Platelet Count 83 K/mm3 (150-400); RDW Standard Deviation 58.4 fL (35.1-46.3); Red Blood Cell Count 2.77 M/mm3 (4.30-5.90); White Blood Cell Count 3.23 K/mm3 (4.00-11.30)
[2018-04-13 05:12] LABS: Alanine Aminotransfer (ALT/SGP 15 U/L (12-78); Albumin/Globulin Ratio 0.7 (0.8-1.8); Alk Phos 73 U/L (50-136); Anion Gap 7 mmol/L (6-16); Aspartate Aminotrans (AST/SGOT 29 U/L (12-37); Bilirubin, Total 1.3 mg/dL (0.1-1.0); Blood Urea Nitrogen 11 mg/dL (8-24); CO2, Blood 29 mmol/L (21-32); Calcium, Blood 7.5 mg/dL (8.5-10.1); Chloride, Blood 105 mmol/L (98-108); Creatinine, Blood 0.65 mg/dL (0.60-1.20); Globulin, Blood 2.7 g/dL (2.2-4.0); Glomerular Filtration Rate >60 (60-); Glucose, Blood 118 mg/dL (70-99); Potassium, Blood 3.8 mmol/L (3.5-5.5); Sodium, Blood 141 mmol/L (136-145); Total Protein, Blood 4.7 g/dL (6.4-8.2)
--- NOTE | 2018-04-13 17:23 | NUR ---
SHIFT SUMMARY PAIN HAS BEEN MANAGED WITH PO PAIN MEDICATION THIS SHIFT. ATTEMPTING TO REDUCE PAIN MEDICATION SINCE PT IS DROWSY BETWEEN DOSES OF MEDICATION. WHEN HE IS ASKED TO RATE PAIN HE CONSISTANTLY RATES HIGH BUT DOES NOT ASK FOR PAIN MEDICATION UNLESS IT IS OFFERED. PT WAS OFFERED ASSISTANCE TO GET OOB TO THE CHAIR, HE DECLINED. HE IS ABLE TO REPOSITION HIMSELF USING HIS TRAPEZE. PT IS TOLERATING PO WELL. VSS. WILL MONITOR UNTIL REPORT TO ONCOMING RN.
[2018-04-14 04:58] LABS: BASOPHILS ABSOLUTE AUTO 0.01 K/mm3 (0.00-0.23); BASOPHILS PERCENT AUTO 0 % (0-2); EOSINOPHILS ABSOLUTE AUTO 0.26 K/mm3 (0.00-0.68); EOSINOPHILS PERCENT AUTO 8 % (0-6); Hematocrit 30.3 % (37.0-53.0); Hemoglobin 10.3 g/dL (13.5-17.5); IMMATURE GRAN ABSOLUTE AUTO 0.01 K/mm3 (0.00-0.10); IMMATURE GRAN PERCENT AUTO 0 % (0-1); LYMPHOCYTES ABSOLUTE AUTO 0.77 K/mm3 (0.84-5.20); LYMPHOCYTES PERCENT AUTO 23 % (21-46); MONOCYTES ABSOLUTE AUTO 0.37 K/mm3 (0.16-1.47); MONOCYTES PERCENT AUTO 11 % (4-13); Mean Corpuscular HGB 34.3 pg (26.0-34.0); Mean Corpuscular Volume 101 fL (80-100); Mean Platelet Volume 10.8 fL (9.1-12.4); NEUTROPHILS ABSOLUTE AUTO 1.96 K/mm3 (1.96-9.15); NEUTROPHILS PERCENT AUTO 58 % (41-73); Platelet Count 87 K/mm3 (150-400); RDW Coefficient Variation 15.9 % (11.7-14.2); RDW Standard Deviation 58.2 fL (35.1-46.3); White Blood Cell Count 3.38 K/mm3 (4.00-11.30)
[2018-04-14 05:15] LABS: Anion Gap 5 mmol/L (6-16); Blood Urea Nitrogen 14 mg/dL (8-24); Bun/Creatinine Ratio 17.1 (12.0-20.0); CO2, Blood 30 mmol/L (21-32); Calcium, Blood 8.2 mg/dL (8.5-10.1); Chloride, Blood 105 mmol/L (98-108); Creatinine, Blood 0.82 mg/dL (0.60-1.20); Glomerular Filtration Rate >60 (60-); Glucose, Blood 103 mg/dL (70-99); Sodium, Blood 140 mmol/L (136-145)
--- NOTE | 2018-04-14 05:34 | NUR ---
LYING IN SEMI FOWLERS WITH EYES CLOSED. FREQUENTLY REPOSITIONES SELF FOR COMFORT USING TRAPEZE BAR. LEFT HIP DRESSING IS C/D/I WITH GOOD DISTAL PULSES NOTED. PT STILL HAS FLAT AFFECT, BUT DENIES FUTHER NEEDS AT THIS TIME. SAFETY MEASURES IN PLACE. WILL GIVE HAND OFF TO ONCOMING SHIFT USING SBAR.
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
--- NOTE | 2018-04-14 16:49 | NUR ---
OFFERED TO HAVE PT'S WALLET LOCKED UP WITH SECURITY. PT REFUSED.
--- NOTE | 2018-04-14 19:14 | NUR ---
DISCHARGE SUMMARY PT LEFT VIA WC WITH TRANSPORT TO GO TO [facility] WITH ALL PERSONAL POSSESSIONS INCLUDING WALLET IN PLASTIC BAG IN PT GOWN POCKET. ATTEMPTED TO CALL REPORT TO SNF, CONTINUOUS RINGING, NO ANSWER. IV DC'D.
== END 2018-04-14 18:40 | DRG 470 ==
LOC: ER 06:21 → SURS 07:57
PROVIDERS: Emergency Medicine; Internal Medicine; Nurse Practitioner Acute Care; Orthopaedic Surgery; ADMIT Internal Medicine
PROC: 6A550Z2 Pheresis of Platelets, Single (ICD-10-PCS; 2018-04-07)
PROC: 0SRS0JA Replacement of Left Hip Joint, Femoral Surface with Synthetic Substitute, Uncemented, Open Approach (ICD-10-PCS; principal; 2018-04-08 12:30)
DX: S72.002A Fracture of unspecified part of neck of left femur, initial encounter for closed fracture (principal); N39.0 Urinary tract infection, site not specified; F10.239 Alcohol dependence with withdrawal, unspecified; K70.30 Alcoholic cirrhosis of liver without ascites; W19.XXXA Unspecified fall, initial encounter; I48.91 Unspecified atrial fibrillation; D69.6 Thrombocytopenia, unspecified; E83.42 Hypomagnesemia; B96.20 Unspecified Escherichia coli [E. coli] as the cause of diseases classified elsewhere; B18.2 Chronic viral hepatitis C; Z66 Do not resuscitate; Z88.8 Allergy status to other drugs, medicaments and biological substances; I25.2 Old myocardial infarction
CPT/HCPCS: 36415; 36430; 71045; 72170; 73502; 73552; 73560-LT; 80048; 80053; 81001; 82330; 82550; 82607; 82746; 83735; 84132; 85025; 85610; 85730; 86850; 86900; 86901; 86923; 87077; 87086; 87186; 88305; 88311; 93005; 93010; 93306; 94762; 96361; 96374; 96375; 97110; 97163; 97165; 97530; 97535; 99285-25; C1776; C9113; G0480; J0171; J0690; J0696; J0735; J1170; J1885; J2060; J2250; J2405; J2795; J3010; J3430; J3475; J7030; J7120; P9016; P9035

== ENCOUNTER 2018-05-08 15:11 | Inpatient (IN) | payer MEDICARE ==
[~2018-05-08] VITALS: Ht 190.5 cm; Wt 114.5 kg
--- NOTE | 2018-05-08 17:55 | NUR ---
PATIENT GIVES PERMISSION FOR STUDENT NURSE CARA BELTRAN TO PROVIDE CARE ON 05/08/18.
[2018-05-08] MEDS ORDERED: **INCOMPLETE MED REC (19:29)
[2018-05-08] MEDS ORDERED: BACL10 PO (19:37)
[2018-05-08] MEDS ORDERED: FAMO20 PO (19:38)
[2018-05-08] MEDS ORDERED: MUSCLE RUB CREA35 GM TOP (19:41)
[2018-05-08] MEDS ORDERED: OXYC10TA19 PO (19:42)
[2018-05-08] MEDS ORDERED: Colace100 MG PO (19:44)
[2018-05-08] MEDS ORDERED: NYSTRITC TOP (19:45)
[2018-05-08] MEDS ORDERED: ANTIFUNGAL POWD71 GM TOP (19:46)
--- NOTE | 2018-05-08 22:00 | NUR ---
REPORT RECIEVED FROM HOWARD BELL RN. ROOM 229 CLEAN, WILL AWAIT PT ARRIVAL.
--- NOTE | 2018-05-08 23:29 | NUR ---
ADMISSION: PT TO UNIT AT ABOUT 2319, USED SLIDER SHEET TO TRANSFER. PT IS A/O, VSS, STATES PAIN IS 10/10 AFTER TRANSFER. L HIP RED AND SWOLLEN. PT SETTLED AND ORIENTED TO ROOM.NO PAIN MEDICATION ON EMAR. CALLED JESSA MACK AT 6187, SEE NEW ORDER. WILL CTM PT STATUS
[2018-05-09 04:59] LABS: BASOPHILS ABSOLUTE AUTO 0.02 K/mm3 (0.00-0.23); BASOPHILS PERCENT AUTO 0 % (0-2); EOSINOPHILS ABSOLUTE AUTO 0.02 K/mm3 (0.00-0.68); EOSINOPHILS PERCENT AUTO 0 % (0-6); Hematocrit 35.6 % (37.0-53.0); Hemoglobin 11.5 g/dL (13.5-17.5); IMMATURE GRAN ABSOLUTE AUTO 0.03 K/mm3 (0.00-0.10); IMMATURE GRAN PERCENT AUTO 0 % (0-1); LYMPHOCYTES ABSOLUTE AUTO 0.42 K/mm3 (0.84-5.20); LYMPHOCYTES PERCENT AUTO 6 % (21-46); MONOCYTES ABSOLUTE AUTO 0.74 K/mm3 (0.16-1.47); MONOCYTES PERCENT AUTO 10 % (4-13); Mean Corpuscular HGB 34.5 pg (26.0-34.0); Mean Corpuscular HGB Conc 32.3 g/dL (31.5-36.5); Mean Corpuscular Volume 107 fL (80-100); Mean Platelet Volume 11.3 fL (9.1-12.4); NEUTROPHILS ABSOLUTE AUTO 6.03 K/mm3 (1.96-9.15); NEUTROPHILS PERCENT AUTO 83 % (41-73); RDW Coefficient Variation 14.4 % (11.7-14.2); RDW Standard Deviation 56.9 fL (35.1-46.3); Red Blood Cell Count 3.33 M/mm3 (4.30-5.90); White Blood Cell Count 7.26 K/mm3 (4.00-11.30)
[2018-05-09 05:17] LABS: Platelet Count 39 K/mm3 (150-400)
[2018-05-09 05:19] LABS: Alanine Aminotransfer (ALT/SGP 11 U/L (12-78); Albumin, Blood 2.4 g/dL (3.4-5.0); Albumin/Globulin Ratio 0.7 (0.8-1.8); Alk Phos 81 U/L (50-136); Anion Gap 8 mmol/L (6-16); Aspartate Aminotrans (AST/SGOT 15 U/L (12-37); Bilirubin, Total 2.2 mg/dL (0.1-1.0); Blood Urea Nitrogen 12 mg/dL (8-24); Bun/Creatinine Ratio 22.8 (12.0-20.0); CO2, Blood 20 mmol/L (21-32); Calcium, Blood 7.7 mg/dL (8.5-10.1); Chloride, Blood 109 mmol/L (98-108); Creatinine, Blood 0.53 mg/dL (0.60-1.20); Globulin, Blood 3.3 g/dL (2.2-4.0); Glomerular Filtration Rate >60 (60-); Glucose, Blood 105 mg/dL (70-99); Potassium, Blood 3.9 mmol/L (3.5-5.5); Sodium, Blood 137 mmol/L (136-145); Total Protein, Blood 5.7 g/dL (6.4-8.2)
--- NOTE | 2018-05-09 05:31 | NUR ---
CRITICAL PLATLET COUNT: DR. MONTES CALLED AT 0525 AND MADE AWARE OF PT PLATLET COUNT OF 39 AND PT TEMP OF 101.5. NO NEW ORDERS AT THIS TIME. PT RESTING, WILL CTM
--- NOTE | 2018-05-09 05:41 | NUR ---
SUMMARY: SEE PREVIOUS NOTES. NO ACUTE CHANGE SINCE ADMISSION. PT HAS NOT REPORTED PAIN AND HAS SLEPT, NO PAIN MEDS GIVEN THIS SHIFT. NO CHANGE IN ASSESSMENT OF L HIP. ANTIBIOTICS INFUSED AND WILL MONITOR TEMP. VSS, TELE WNL, A/O, USING CALL LIGHT. WILL CTM AND REPORT TO DAY RN
--- NOTE | 2018-05-09 13:26 | NUR ---
patient was lying in bed and alert when I entered the room. Patient remembered this commercial real estate underwriter from a prior hospital stay. Patient rehersed the event that led to his readmission to the hospital and the frustrations he feels about the longivity of his recovery. I listened empathically and provided pastoral university counselor, companionship and prayer. Patient responded well to all interventions and showed signs of reduced stress. I also tracked down some lost and found items for the patient that were left at the hospital from his last stay. Patient thanked me for the prayer and for retriving his things. I remain available to patient.
--- NOTE | 2018-05-09 18:45 | NUR ---
SUMMARY NO ACUTE CHANGES. PAIN MANAGED WITH 25-50 MCG IV FENTANYL. PT CONTINUES TO HAVE FREQUENT SMALL LOOSE STOOLS. INCONTINENE NOTICED AT TIMES. LEFT HIP REMAINS WARM TO TOUCH, NO DRAINAGE NOTED, STERI STRIPS INTACT. ABX INFUSING PER EMAR. POSITIVE BLOOD CULTURES REPORTED TO HOSPITALIST, NO FURTHER ORDERS RECIEVED. CALL LIGHT IN REACH, WCTM
--- NOTE | 2018-05-10 03:26 | NUR ---
WASHED PT WITH CHLORHEXIDINE WIPES.
[2018-05-10 05:21] LABS: BASOPHILS ABSOLUTE AUTO 0.01 K/mm3 (0.00-0.23); BASOPHILS PERCENT AUTO 0 % (0-2); EOSINOPHILS ABSOLUTE AUTO 0.03 K/mm3 (0.00-0.68); EOSINOPHILS PERCENT AUTO 1 % (0-6); Hematocrit 33.4 % (37.0-53.0); Hemoglobin 10.7 g/dL (13.5-17.5); IMMATURE GRAN ABSOLUTE AUTO 0.01 K/mm3 (0.00-0.10); IMMATURE GRAN PERCENT AUTO 0 % (0-1); LYMPHOCYTES ABSOLUTE AUTO 0.32 K/mm3 (0.84-5.20); LYMPHOCYTES PERCENT AUTO 8 % (21-46); MONOCYTES ABSOLUTE AUTO 0.47 K/mm3 (0.16-1.47); MONOCYTES PERCENT AUTO 12 % (4-13); Mean Corpuscular HGB 34.2 pg (26.0-34.0); Mean Corpuscular Volume 107 fL (80-100); Mean Platelet Volume 11.1 fL (9.1-12.4); NEUTROPHILS ABSOLUTE AUTO 3.06 K/mm3 (1.96-9.15); NEUTROPHILS PERCENT AUTO 78 % (41-73); RDW Coefficient Variation 14.2 % (11.7-14.2); RDW Standard Deviation 56.2 fL (35.1-46.3); Red Blood Cell Count 3.13 M/mm3 (4.30-5.90)
[2018-05-10 06:36] LABS: Albumin, Blood 2.3 g/dL (3.4-5.0); Anion Gap 8 mmol/L (6-16); Blood Urea Nitrogen 13 mg/dL (8-24); Bun/Creatinine Ratio 21.8 (12.0-20.0); CO2, Blood 22 mmol/L (21-32); Calcium, Blood 7.7 mg/dL (8.5-10.1); Chloride, Blood 108 mmol/L (98-108); Glomerular Filtration Rate >60 (60-); Glucose, Blood 91 mg/dL (70-99); Phosphorus, Blood 2.2 mg/dL (2.5-4.9); Potassium, Blood 3.5 mmol/L (3.5-5.5); Sodium, Blood 138 mmol/L (136-145)
[2018-05-10 06:42] LABS: Platelet Count 39 K/mm3 (150-400)
--- NOTE | 2018-05-10 08:00 | NUR ---
2ND UNIT PLT INFUSING DR WILKINS BY EARLIER
[2018-05-10 08:38] LABS: Hematocrit 32.8 % (37.0-53.0); Hemoglobin 10.8 g/dL (13.5-17.5); Mean Corpuscular HGB 35.2 pg (26.0-34.0); Mean Corpuscular HGB Conc 32.9 g/dL (31.5-36.5); Mean Corpuscular Volume 107 fL (80-100); Mean Platelet Volume 10.6 fL (9.1-12.4); Platelet Count 54 K/mm3 (150-400); RDW Coefficient Variation 14.1 % (11.7-14.2); Red Blood Cell Count 3.07 M/mm3 (4.30-5.90); White Blood Cell Count 3.42 K/mm3 (4.00-11.30)
--- NOTE | 2018-05-10 09:06 | NUR ---
SUMMARY PT WITH CRITICAL LOW PLATELETS THIS AM.DR HERNANDEZ HAS ORDER TO TRANSFUSE PLATELETS WELL TRANXEMIC OC TO OR. SPOKE WITH DOCTOR AND INSTRUCTED OF NEED FOR 2 UNTIS PLATELETS TRANSFUSED AND FOLLOW UP H/H PLATELET RESULT PRIOR TO OR AND TRANXEMIC TO BE ADMINISTERED IN OR.FOLLOW UP PLATELET RESULT 54 NOTIFIED. HANK INIGUEZ RN FOLLOWING UP.
[2018-05-10 09:19] LABS: BASOPHILS PERCENT MAN 0 % (0-2); EOSINOPHILS PERCENT MAN 0 % (0-6); LYMPHOCYTES ABSOLUTE MAN 0.17 K/mm3 (0.84-5.20); LYMPHOCYTES PERCENT MAN 5 % (21-46); MONOCYTES PERCENT MAN 9 % (4-13); NEUTROPHILS ABSOLUTE MAN 2.94 K/mm3 (1.96-9.15); SEG NEUTROPHILS PERCENT MAN 86 % (41-73); TOTAL CELLS COUNTED 100
--- NOTE | 2018-05-10 10:00 | NUR ---
DR ESCAMILLA BY TO SEE PT SURG ON HOLD PT TO BE SEEN BY HEMATOLOGY PT STATED IN THE PAST HE HAS SEEN JUDE WILL TRY AND REACH HIM VS PALEOBOTANIST PER PT REQ PT ALSO TO RECIEVE PHOS RIDER PER ANDI WAS ON HOLD THIS AM PER SURG
--- NOTE | 2018-05-10 10:30 | NUR ---
PT IN RADIOLOGY FOR GUIDED DRAINAGE OF HIP
--- NOTE | 2018-05-10 16:44 | NUR ---
DR MCDONALD CALLED EARLIER FOR CLARIFICATION PT TO HAVE 1 UNIT OF PLT AND TO CHECK LEVELS IF LOWER THEN 75 WILL GET ANOTHER IN AM PRE-OP
[2018-05-10 16:51] LABS: Vancomycin, Trough 9.5 ug/mL (5.0-10.0)
--- NOTE | 2018-05-10 18:45 | NUR ---
3 UNIT PLT TRANSFUSED PT EARLIER HAD INCREASED TEMP CALLED DR ESCAMILLA UNAVAILABLE CALLED DR ALVES COMMUNICATION COORDINATOR FOR HOSP SERVICE OT DOSE OF PO TYLENOL GIVEN PRIOR TO STARTING THE PLT'S WILL CHECK CBC IN 1 HR PT TEMP IS COMING DOWN WILL CONT TO MONITOR PRIOR TO TRANSFUSION 102 POST 101 SHEETS ONLY THERMOSTAT TURNED OFF
[2018-05-10 21:03] LABS: BASOPHILS PERCENT AUTO 0 % (0-2); EOSINOPHILS ABSOLUTE AUTO 0.05 K/mm3 (0.00-0.68); EOSINOPHILS PERCENT AUTO 2 % (0-6); Hematocrit 31.3 % (37.0-53.0); Hemoglobin 10.4 g/dL (13.5-17.5); IMMATURE GRAN ABSOLUTE AUTO 0.01 K/mm3 (0.00-0.10); IMMATURE GRAN PERCENT AUTO 0 % (0-1); LYMPHOCYTES ABSOLUTE AUTO 0.24 K/mm3 (0.84-5.20); LYMPHOCYTES PERCENT AUTO 8 % (21-46); MONOCYTES ABSOLUTE AUTO 0.44 K/mm3 (0.16-1.47); MONOCYTES PERCENT AUTO 15 % (4-13); Mean Corpuscular HGB 34.2 pg (26.0-34.0); Mean Corpuscular HGB Conc 33.2 g/dL (31.5-36.5); Mean Platelet Volume 11.3 fL (9.1-12.4); NEUTROPHILS ABSOLUTE AUTO 2.14 K/mm3 (1.96-9.15); NEUTROPHILS PERCENT AUTO 74 % (41-73); Platelet Count 65 K/mm3 (150-400); RDW Coefficient Variation 13.9 % (11.7-14.2); RDW Standard Deviation 53.2 fL (35.1-46.3); Red Blood Cell Count 3.04 M/mm3 (4.30-5.90); White Blood Cell Count 2.88 K/mm3 (4.00-11.30)
[2018-05-10 21:07] LABS: Mean Corpuscular Volume 103 fL (80-100)
--- NOTE | 2018-05-11 06:57 | NUR ---
pt sleeping vanco infusing when complete will start plt
[2018-05-11 07:12] LABS: Hematocrit 30.7 % (37.0-53.0); Hemoglobin 10.1 g/dL (13.5-17.5); Mean Corpuscular HGB 33.9 pg (26.0-34.0); Mean Corpuscular HGB Conc 32.9 g/dL (31.5-36.5); Mean Corpuscular Volume 103 fL (80-100); Mean Platelet Volume 11.3 fL (9.1-12.4); RDW Standard Deviation 53.1 fL (35.1-46.3); Red Blood Cell Count 2.98 M/mm3 (4.30-5.90); White Blood Cell Count 1.65 K/mm3 (4.00-11.30)
[2018-05-11 07:23] LABS: Platelet Count 46 K/mm3 (150-400)
--- NOTE | 2018-05-11 07:51 | NUR ---
SUMMARY REPORTED TO DR DELGADO PLATELETS OF 65 POST TRANSFUSION, FURTHER ORDERS WERE RECEIVED HOWEVER, LAB CALLED US TO REPORT NO PLATELETES WOULD BE AVAILABLE FOR TRANSFUSION UNTIL POSSIBLY CLOSE TO NOON 05/[address] DELGADO WHO STATED 65 IS OK LEVEL FOR OR FROM HIS STANDPOINT.ALSO NOTIFIED DR HERNANDEZ OF ABOVE.HOWEVER, SLIPS ARRIVED TO CHART THIS AM FOR PLATELETES. I CALLED BLOOD BANK WHO CONFIRMED PLATELETES ARRIVED EARLIER THAN EXPECTED. INFUSING IV ANTIBIOTICS THEN WILL RECEIVE PLATELETS.
--- NOTE | 2018-05-11 07:57 | NUR ---
DR ESCAMILLA CALLED RE THIS PLT 46 LEVEL 2 UNITS TO BE GIVEN THIS AM AND PT CURRENT TEMP 101.6 OT OREDER OF TYLENOL TO GIVE IF INCREASE PER CLAUDETTE
--- NOTE | 2018-05-11 09:45 | NUR ---
dr israel by to see pt re i put when pt can have pt pain meds on his board
--- NOTE | 2018-05-11 10:20 | NUR ---
PT TRANSPORTED TO OR VIA BED 2ND PLT TO BE TRANSFUSED BY LOCKSTITCH WAISTLINE JOINER
--- NOTE | 2018-05-11 12:34 | NUR ---
05/11/18 1234 Zoie Magallanes PT IS ON SCHEDULED ANTIBIOTICS AND RECIEVED THEM PRIOR TO ARRIVAL TO OR.
--- NOTE | 2018-05-11 13:50 | NUR ---
RECEIVED REPORT FROM HOLLEY CHILD DEVELOPMENT ASSOCIATE TEACHER, WHOM WAS CARING FOR PT BEFORE HE WENT TO SURGERY.
--- NOTE | 2018-05-11 14:00 | NUR ---
RECEIVED REPORT FROM YAZMIN SUMMER CAMP COUNSELOR, WHOM WILL TAKE PT TO XRAY FOR LEFT HIP XRAY BEFORE BRINGING PT TO ICU ROOM 7.
[2018-05-11 14:04] LABS: Appearance, Body Fluid Turbid (Clear); Color, Body Fluid Brown (None-Yellow)
[2018-05-11 14:05] LABS: RBC Count, Body Fluid 280000 /mm3 (0-0)
[2018-05-11 14:06] LABS: Body Fluid WBC Count > 200000 /mm3 (0-999)
[2018-05-11 14:07] LABS: Total Cell Count, Body Fluid 100
--- NOTE | 2018-05-11 15:09 | NUR ---
TRANSFER TO ICU FROM PACU RECEIVED PT FROM YAZMIN, DISTILLATION OPERATOR. ASSISTED WITH TRANSFERRING PT TO ICU BED. LEFT HIP WITH BUKLY DRESSING OF ABD PADS AND PAPER TAPE, CDI. HEMOVAC IN PLACE WITH 70 CC BLOODY DRAINAGE, BILATERAL FEET WARM, STRONG PULSES, CAP REFILL LESS THAN 3 SECS, ABLE TO WIGGLE TOES, SCD'S IN PLACE, ROLLED BLANKET BETWEEN LEGS/KNEES DUE TO PT'S LEFT KNEE/UPPER LEG TURNING INWARD. CONTROLLED AFIB ON MONITOR, HR 70 - 80'S. BP 112/53. LUNGS CLEAR, DIMINISHED, COUGHING THAT CLEARED LUNGS, 99% ON ROOM AIR. ALERT AND ORIENTED, TALKATIVE, RECITING POEMS. TEMP 98.8. PLATELETS = 46 WHEN PT WENT TO SURGERY. CBC AND BLOOD CULTURES BEING DRAWN NOW. PT WAS TAKEN TO RADIOLOGY BEFORE COMING TO ICU AND HAD A LEFT HIP XRAY, AWAITING RESULTS. PT C/O LEFT HIP PAIN 12/11, YAZMIN, DISTILLATION OPERATOR, HAD JUST GIVEN FENTANYL. WILL MEDICATE NEEDED. VOIDED 250 CC DARK YELLOW URINE PER URINAL. RIGHT WRIST 18G IV. WILL START MAINTENANCE IVF ORDERED.
--- NOTE | 2018-05-11 15:15 | NUR ---
ADVISED DR. IVAN OF CONSULT ORDER AND THAT DR. RAMOS STATED HE PLACED THE CONSULT FOR ICU IF NEEDED.
[2018-05-11 15:44] LABS: BASOPHILS ABSOLUTE AUTO 0.01 K/mm3 (0.00-0.23); BASOPHILS PERCENT AUTO 0 % (0-2); EOSINOPHILS PERCENT AUTO 0 % (0-6); Hematocrit 29.7 % (37.0-53.0); Hemoglobin 9.5 g/dL (13.5-17.5); IMMATURE GRAN ABSOLUTE AUTO 0.01 K/mm3 (0.00-0.10); IMMATURE GRAN PERCENT AUTO 0 % (0-1); LYMPHOCYTES ABSOLUTE AUTO 0.22 K/mm3 (0.84-5.20); LYMPHOCYTES PERCENT AUTO 9 % (21-46); MONOCYTES ABSOLUTE AUTO 0.21 K/mm3 (0.16-1.47); MONOCYTES PERCENT AUTO 8 % (4-13); Mean Corpuscular HGB 34.4 pg (26.0-34.0); Mean Platelet Volume 10.9 fL (9.1-12.4); NEUTROPHILS ABSOLUTE AUTO 2.05 K/mm3 (1.96-9.15); NEUTROPHILS PERCENT AUTO 82 % (41-73); Platelet Count 71 K/mm3 (150-400); RDW Coefficient Variation 13.9 % (11.7-14.2); RDW Standard Deviation 54.9 fL (35.1-46.3); Red Blood Cell Count 2.76 M/mm3 (4.30-5.90)
[2018-05-11 15:45] LABS: Mean Corpuscular Volume 108 fL (80-100)
[2018-05-11 16:39] LABS: Color, Synovial Fluid Red (None-P Yel)
[2018-05-11 16:40] LABS: Appearance, Synovial Fluid Turbid (Clear)
[2018-05-11 16:42] LABS: RBC Count, Synovial Fluid 360000 /mm3 (0-0); WBC Count, Synovial Fluid 129140 /mm3 (0-180)
[2018-05-11 16:44] LABS: Color, Synovial Fluid Red (None-P Yel)
[2018-05-11 16:45] LABS: Appearance, Synovial Fluid Turbid (Clear)
[2018-05-11 16:46] LABS: RBC Count, Synovial Fluid 840000 /mm3 (0-0); WBC Count, Synovial Fluid 54740 /mm3 (0-180)
--- NOTE | 2018-05-11 18:39 | NUR ---
NURSING SUMMARY LEFT HIP WITH BULKY ABD DRESSING IN PLACE, WEDGE BETWEEN LEGS, HEMOVAC WITH 135 CC BLOODY DRAINAGE SINCE 1500 TODAY. HOB 30 DEG, TOLERATE CLEAR LIQUID DIET, ADVANCED TO REGULAR DIET FOR MORNING. DENIES NAUSEA AND VOMITING. C/O 10/10 PAIN AT ALL TIMES, HAVE MEDICATED WITH MAX DOSES OF DILAUDID, FENTANYL, TORADOL, AND ROXICODONE.
[2018-05-11 18:50] LABS: Lymphs, Synovial Fluid 2 % (0-15); Monocytes/Macrophages, Synovia 8 % (0-65); Neutrophils, Synovial Fluid 90 % (0-24)
[2018-05-11 18:52] LABS: Lymphs, Synovial Fluid 6 % (0-15); Monocytes/Macrophages, Synovia 3 % (0-65); Neutrophils, Synovial Fluid 91 % (0-24)
--- NOTE | 2018-05-11 19:35 | NUR ---
PATIENT RESTING IN BED DRESSING TO LEFT HIP CD&I WITH HEMOVAC IN PLACE DRAINING SEROSANG FLUID. PATIENT C/O PAIN 10/10 TO HIS LEFT HIP. PATIENT VERBALIZED THAT HIS PAIN WAS SLIGHTLY LESS AFTER TORADOL GIVEN EARLIER, BUT NEVER WENT LESS THAN 10. PLAN TO MEDICATE NEEDED PER EMAR. PATIENT REQUESTING FOOD, YOGURT AND FRESH FRUIT. PATIENT ADDISON PO WELL.
--- NOTE | 2018-05-11 23:46 | NUR ---
PATIENT CONTINUES TO C/O PAIN 12/11. FOUND HIS PAIN PILLS CRUSHED AT BEDSIDE, WHEN ASKED PATIENT WHY HE DIDN'T TAKE THEM WHEN I GAVE THEM TO HIM HE VERBALIZED THAT HE LIKES TO TAKE THEM CRUSHED. VISUALIZED PATIENT TAKING NOW CRUSHED TABLETS. PATIENT CONTINUES TO C/O 12/11 PAIN TO HIS LEFT HIP. ICE PLACED TO LEFT HIP AT APROX 2200. PATIENT HAVING SEVERAL SNACKS ALREADY TONIGHT. PATIENT VERBALIZED HE JUST IS HUNGARY.
[2018-05-12 05:23] LABS: BASOPHILS PERCENT AUTO 0 % (0-2); EOSINOPHILS PERCENT AUTO 0 % (0-6); Hematocrit 27.6 % (37.0-53.0); Hemoglobin 9.1 g/dL (13.5-17.5); IMMATURE GRAN ABSOLUTE AUTO 0.01 K/mm3 (0.00-0.10); IMMATURE GRAN PERCENT AUTO 0 % (0-1); LYMPHOCYTES ABSOLUTE AUTO 0.33 K/mm3 (0.84-5.20); LYMPHOCYTES PERCENT AUTO 15 % (21-46); MONOCYTES ABSOLUTE AUTO 0.25 K/mm3 (0.16-1.47); MONOCYTES PERCENT AUTO 11 % (4-13); Mean Corpuscular HGB 34.2 pg (26.0-34.0); Mean Platelet Volume 10.1 fL (9.1-12.4); NEUTROPHILS ABSOLUTE AUTO 1.68 K/mm3 (1.96-9.15); NEUTROPHILS PERCENT AUTO 74 % (41-73); Platelet Count 82 K/mm3 (150-400); RDW Coefficient Variation 13.3 % (11.7-14.2); RDW Standard Deviation 51.4 fL (35.1-46.3); Red Blood Cell Count 2.66 M/mm3 (4.30-5.90); White Blood Cell Count 2.27 K/mm3 (4.00-11.30)
[2018-05-12 05:27] LABS: Mean Corpuscular Volume 104 fL (80-100)
[2018-05-12 05:55] LABS: Anion Gap 6 mmol/L (6-16); Blood Urea Nitrogen 12 mg/dL (8-24); Bun/Creatinine Ratio 20.8 (12.0-20.0); CO2, Blood 24 mmol/L (21-32); Calcium, Blood 7.6 mg/dL (8.5-10.1); Chloride, Blood 105 mmol/L (98-108); Creatinine, Blood 0.58 mg/dL (0.60-1.20); Glomerular Filtration Rate >60 (60-); Glucose, Blood 134 mg/dL (70-99); Potassium, Blood 4.5 mmol/L (3.5-5.5); Sodium, Blood 135 mmol/L (136-145)
[2018-05-12 05:56] LABS: Vancomycin, Trough 15.1 ug/mL (5.0-10.0)
--- NOTE | 2018-05-12 06:14 | NUR ---
PATIENT AWAKE MOST OF THE NIGHT. VERBALIZED PAIN TO HIS LEFT HIP 10/10 DESPITE MULTIPLE TYPES OF PAIN MEDICATION. PATIENT SHIFTING SELF IN BED FOR COMFORT. DRESSING TO LEFT HIP CD&I, ICE TO HIP. HEMOVAC IN PLACE HOLDING GOOD SUCTION SEE I&O. PATIENT EATING MULTIPLE TIMES T/O THE NIGHT. USING URINAL WITH MIN ASSISTANCE.
--- NOTE | 2018-05-12 06:44 | NUR ---
PATIENT C/O ACID STOMACH, SALTINE CRACKERS AND JOSE AURA GIVEN
--- NOTE | 2018-05-12 07:40 | NUR ---
ASSUMED CARE: PT RESTING IN BED. DENIES COMPLAINT BESIDES CONTINUOUS PAIN THAT IS SOMEWHAT CONTROLLED BY PAIN MEDS. DR WILKINS AT BEDSIDE. STATUS CHANGE ORDERED. WOUND VAC IN PLACE. NOTED VAC AND WOUND DRESSING. VSS. NO FURTHER NEEDS OR CONCERNS AT THIS TIME.
--- NOTE | 2018-05-12 13:33 | NUR ---
Pt. is lying in bed and his nurse in the room attending to his needs , offered prayers and spiritual support to the pt.
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
--- NOTE | 2018-05-12 16:59 | NUR ---
REPORT CALLED TO [facility]. PT TRANSPORTED TO SURGICAL FLOOR, ROOM 227 VIA BED BY ROSA. PT'S EDYTA KHAN CALLED AND WAS MADE AWARE OF NEW ROOM NUMBER AND DEPARTMENT TO CONTACT. NO FURTHER NEEDS OR CONCERNS.
--- NOTE | 2018-05-12 17:47 | NUR ---
TRANSFER PT TRANSFERRED INTO ROOM FROM ICU. PT IS AWAKE, ALERT & ORIENTED X4. LINENS WERE CHANGED AT THIS TIME. PT HAS A AMBULANCE DRIVER PARAMEDIC FOR PAIN CONTROL AT BEDSIDE, STATES PAIN IS WELL MANAGED. RESP UNLABORED. CALL LIGHT IS IN REACH, WCTM
[2018-05-13 05:04] LABS: Hematocrit 24.6 % (37.0-53.0); Hemoglobin 8.3 g/dL (13.5-17.5); Mean Corpuscular HGB 34.6 pg (26.0-34.0); Mean Corpuscular HGB Conc 33.7 g/dL (31.5-36.5); Mean Corpuscular Volume 103 fL (80-100); Mean Platelet Volume 10.4 fL (9.1-12.4); Platelet Count 65 K/mm3 (150-400); RDW Coefficient Variation 13.2 % (11.7-14.2); RDW Standard Deviation 49.8 fL (35.1-46.3)
[2018-05-13 05:29] LABS: Anion Gap 6 mmol/L (6-16); Blood Urea Nitrogen 12 mg/dL (8-24); CO2, Blood 25 mmol/L (21-32); Calcium, Blood 8.2 mg/dL (8.5-10.1); Chloride, Blood 106 mmol/L (98-108); Creatinine, Blood 0.63 mg/dL (0.60-1.20); Glomerular Filtration Rate >60 (60-); Glucose, Blood 102 mg/dL (70-99); Potassium, Blood 3.9 mmol/L (3.5-5.5); Sodium, Blood 137 mmol/L (136-145)
--- NOTE | 2018-05-13 07:06 | NUR ---
SHIFT SUMMARY HAD A GOOD SHIFT, PAIN WELL MANAGED WITH DILAUDID DISPATCHER RELAY. FELT WELL ENOUGH TO ATTPEMT TO USE BSC, BUT WAS UNABLE TO COMPLETED. REPOSITIONED IN BED AND USED BEDPAN. ENCOURAGED TO TRY AGAIN EACH TIME. DENIES FURTHER NEEDS AT THIS TIME. SAFETY MEASURES IN PLACE. WILL GIVE HAND OFF TO ONCOMING SHIFT USING SBAR DURING BEDSIDE REPORT.
--- NOTE | 2018-05-13 14:15 | NUR ---
Pt. is in bed resting he reports to be doing fine encouraged pt and offerd prayers.
--- NOTE | 2018-05-13 16:20 | NUR ---
Spiritual care visit conducted. Patient is frustrated today. He stated a long list of people and situations that are the sources of why he is feeling the way he is. As I facilitated a discussion around his emotions and got him telling me stories of his life and his love/hate relationship with his father, hw began to soften and even laugh. Patient admitted that he is scared from feeling forced to do his rehabilitation work at the facility he was in just prior to the his hospital visit in the midst of his horrific infection. After our discussion the patient displayed evidence of reduced stress and a new inner peace.
--- NOTE | 2018-05-13 17:09 | NUR ---
SHIFT SUMMARY PT REPORTS PAIN IS BETTER THAN YESTERDAY BUT STILL REFUSES TO BE REPOSITIONED AT TIMES DUE TO PAIN. TOLERATING DIET, VOIDING AND BMS WNL, HEMOVAC MILD DRAINAGE.
--- NOTE | 2018-05-13 23:05 | NUR ---
OFF PER REQUEST.RN NOTIFIED
--- NOTE | 2018-05-13 23:33 | NUR ---
DEANN Romero. STEW MACK PAC REGUARDING (+) WOUND CULTURES FOR S. AUREUS.
--- NOTE | 2018-05-13 23:34 | NUR ---
Y. SKIN.LOSTION APPLIED TO DRY SKIN.
--- NOTE | 2018-05-14 03:00 | NUR ---
C/O N/V, 50ML OF BROWN UNDIGESTED MUCUSY LIQUID NOTED. TRAPEZE SET UP OVER THE BED FOR PT COMFORT. TREATED WITH ZOFRAN FOR N/V, TOLERATED WELL. DENIES FURTHER NEEDS OR WANTS AT THIS TIME. SAFETY MEASURES IN PLACE. WILL CONTINUE TO MONITOR.
--- NOTE | 2018-05-14 03:30 | NUR ---
ISSUES WITH WIRE STRAIGHTENING MACHINE OPERATOR PUMP BATTERY NOT HOLDING A CHARGE. NURSING CHANGED OUTLET AND TRIED TO FURTHER TROUBLE SHOOT IT WITHOUT SUCCESS, BATTERY . TORADOL AND ROXYCODONE GIVEN TO HELP MANAGING PAIN OF 10/. SAFETY MEASURES IN PLACE. WILL CONTINUE TO MONITOR.
--- NOTE | 2018-05-14 05:19 | NUR ---
C/O N/V, 10ML EMESIS NOTED. REGLAN GIVEN PER MD ORDERS FOR N/V. SAFETY MEASURES IN PLACE. WILL CONTINUE TO MONITOR.
--- NOTE | 2018-05-14 13:21 | NUR ---
Met in ped snd reports of [facility]ing[facility] advice, offered spiritual and emotional support and prayed for the pt.
[2018-05-15 04:33] LABS: BASOPHILS PERCENT AUTO 0 % (0-2); EOSINOPHILS ABSOLUTE AUTO 0.02 K/mm3 (0.00-0.68); EOSINOPHILS PERCENT AUTO 1 % (0-6); Hematocrit 24.5 % (37.0-53.0); IMMATURE GRAN ABSOLUTE AUTO 0.01 K/mm3 (0.00-0.10); IMMATURE GRAN PERCENT AUTO 1 % (0-1); LYMPHOCYTES ABSOLUTE AUTO 0.48 K/mm3 (0.84-5.20); LYMPHOCYTES PERCENT AUTO 24 % (21-46); MONOCYTES ABSOLUTE AUTO 0.14 K/mm3 (0.16-1.47); MONOCYTES PERCENT AUTO 7 % (4-13); Mean Corpuscular HGB 34.5 pg (26.0-34.0); Mean Corpuscular HGB Conc 32.7 g/dL (31.5-36.5); Mean Platelet Volume 10.5 fL (9.1-12.4); NEUTROPHILS ABSOLUTE AUTO 1.33 K/mm3 (1.96-9.15); NEUTROPHILS PERCENT AUTO 67 % (41-73); RDW Coefficient Variation 14.3 % (11.7-14.2); RDW Standard Deviation 55.4 fL (35.1-46.3); Red Blood Cell Count 2.32 M/mm3 (4.30-5.90); White Blood Cell Count 1.98 K/mm3 (4.00-11.30)
[2018-05-15 04:37] LABS: Mean Corpuscular Volume 106 fL (80-100); Platelet Count 50 K/mm3 (150-400)
[2018-05-15 04:53] LABS: Anion Gap 7 mmol/L (6-16); Blood Urea Nitrogen 8 mg/dL (8-24); Bun/Creatinine Ratio 14.9 (12.0-20.0); CO2, Blood 28 mmol/L (21-32); Calcium, Blood 8.6 mg/dL (8.5-10.1); Chloride, Blood 106 mmol/L (98-108); Creatinine, Blood 0.54 mg/dL (0.60-1.20); Glomerular Filtration Rate >60 (60-); Glucose, Blood 89 mg/dL (70-99); Potassium, Blood 4.1 mmol/L (3.5-5.5); Sodium, Blood 141 mmol/L (136-145)
--- NOTE | 2018-05-15 06:44 | NUR ---
NO CHANGES SINCE START OF SHIFT. MEDICATED FOR PAIN ONCE THIS SHIFT. DENIES FURTHER NEEDS OR WANTS AT THIS TIME. SAFETY MEASURES IN PLACE. WILL GIVE HAND OFF TO ONCOMING SHIFT USING SBAR DURING BEDSIDE REPORT.
--- NOTE | 2018-05-15 14:12 | NUR ---
Pt. is in bed resting, he reports of pain encouraged pt. to be patient offered prayers and blesswd pt.
--- NOTE | 2018-05-15 14:24 | NUR ---
Pt is lying in bed resting,he reports doing ien encouraged pt. and offered prayers for the pt.
--- NOTE | 2018-05-15 14:43 | NUR ---
DISCHARGED TO SNF DC'D IV, CATHETER INTACT. PLACED NEW AQUACEL DRESSING DUE TO SATURATION. PT TRANSFERRED TO [facility] USING LIFT. SENT PAPERWORK WELL AQUACEL DRESSINGS W/TRANSPORT. CALLED REPORT TO [facility].
--- NOTE | 2018-05-15 14:55 | NUR ---
Spiritual care visit conducted. As patient was in the process of being discharged I visited with patient and helped him through some of his fears about leaving the hospital, about recovery while the infection is being dealt with and about support system deficits. I normalized patient's experience, provided pastoral employment counselor, anxiety containment and prayer. Patient seemed to increase in anxiety levels as the transport arrived in his room. Patient expressed gratitude for my visit and companionship while he was in the hospital.
== END 2018-05-15 14:36 | DRG 463 ==
LOC: ER 15:11 → ERHOLD 20:59 → ICUE 20:59 → SURS 20:59 → ICUE 05-11 14:01 → SURS 05-12 17:46
PROVIDERS: Emergency Medicine; Internal Medicine; Internal Medicine Hematology & Oncology; Nurse Practitioner Acute Care; Orthopaedic Surgery; Pharmacist; ADMIT Hospitalist
PROC: 0S9B3ZX Drainage of Left Hip Joint, Percutaneous Approach, Diagnostic (ICD-10-PCS; 2018-05-10)
PROC: 0KDP0ZZ Extraction of Left Hip Muscle, Open Approach (ICD-10-PCS; 2018-05-11)
PROC: 3E0U029 Introduction of Other Anti-infective into Joints, Open Approach (ICD-10-PCS; 2018-05-11)
PROC: 30233N1 Transfusion of Nonautologous Red Blood Cells into Peripheral Vein, Percutaneous Approach (ICD-10-PCS; 2018-05-11)
PROC: 02HV33Z Insertion of Infusion Device into Superior Vena Cava, Percutaneous Approach (ICD-10-PCS; 2018-05-11)
PROC: 0SPB0JZ Removal of Synthetic Substitute from Left Hip Joint, Open Approach (ICD-10-PCS; principal; 2018-05-11 08:00)
DX: T84.52XA Infection and inflammatory reaction due to internal left hip prosthesis, initial encounter (principal); A41.01 Sepsis due to Methicillin susceptible Staphylococcus aureus; D61.818 Other pancytopenia; D68.9 Coagulation defect, unspecified; B19.20 Unspecified viral hepatitis C without hepatic coma; D53.9 Nutritional anemia, unspecified; D73.1 Hypersplenism; D69.59 Other secondary thrombocytopenia; I25.10 Atherosclerotic heart disease of native coronary artery without angina pectoris; I25.2 Old myocardial infarction; D63.8 Anemia in other chronic diseases classified elsewhere; B18.2 Chronic viral hepatitis C; F10.20 Alcohol dependence, uncomplicated; I48.0 Paroxysmal atrial fibrillation; J44.9 Chronic obstructive pulmonary disease, unspecified; K70.10 Alcoholic hepatitis without ascites; K70.30 Alcoholic cirrhosis of liver without ascites; Z87.891 Personal history of nicotine dependence
CPT/HCPCS: 20611; 36415; 36430; 36569; 71045; 72170; 73701; 76942; 80048; 80053; 80069; 80202; 82140; 82607; 82746; 83605; 83735; 85007; 85025; 85027; 85651; 86140; 86850; 86900; 86901; 87040; 87070; 87075; 87077; 87147; 87186; 87205; 89051; 93005; 93010; 93971; 94640; 94760; 96361; 96365-59; 96366; 96375-59; 97110; 97162; 97530; 99285-25; C1713; C1751; J0690; J1100; J1170; J1885; J2370; J2405; J2543; J3010; J3370; J7030; J7050; J7060; J7120; P9035; Q9967

== ENCOUNTER 2018-05-16 18:18 | Emergency (ER) | payer MEDICARE ==
[~2018-05-16] VITALS: Ht 190.5 cm; Wt 106.6 kg
[~2018-05-16 18:18] MED LIST changes: +**INCOMPLETE MED REC; +ANTIFUNGAL POWD71 GM TOP; +BACL10 PO; +Colace100 MG PO; +FAMO20 PO; +MUSCLE RUB CREA35 GM TOP; +NYSTRITC TOP; +OXYC10TA19 PO
[2018-05-16 20:45] LABS: BASOPHILS ABSOLUTE AUTO 0.01 K/mm3 (0.00-0.23); BASOPHILS PERCENT AUTO 0 % (0-2); EOSINOPHILS ABSOLUTE AUTO 0.13 K/mm3 (0.00-0.68); EOSINOPHILS PERCENT AUTO 5 % (0-6); Hematocrit 25.9 % (37.0-53.0); Hemoglobin 8.4 g/dL (13.5-17.5); IMMATURE GRAN ABSOLUTE AUTO 0.01 K/mm3 (0.00-0.10); IMMATURE GRAN PERCENT AUTO 0 % (0-1); LYMPHOCYTES ABSOLUTE AUTO 0.71 K/mm3 (0.84-5.20); LYMPHOCYTES PERCENT AUTO 26 % (21-46); MONOCYTES ABSOLUTE AUTO 0.21 K/mm3 (0.16-1.47); MONOCYTES PERCENT AUTO 8 % (4-13); Mean Corpuscular HGB 34.4 pg (26.0-34.0); Mean Corpuscular HGB Conc 32.4 g/dL (31.5-36.5); Mean Platelet Volume 11.5 fL (9.1-12.4); NEUTROPHILS ABSOLUTE AUTO 1.64 K/mm3 (1.96-9.15); NEUTROPHILS PERCENT AUTO 61 % (41-73); RDW Coefficient Variation 14.7 % (11.7-14.2); RDW Standard Deviation 57.5 fL (35.1-46.3); Red Blood Cell Count 2.44 M/mm3 (4.30-5.90); White Blood Cell Count 2.71 K/mm3 (4.00-11.30)
[2018-05-16 21:00] LABS: Alanine Aminotransfer (ALT/SGP 16 U/L (12-78); Albumin, Blood 2.1 g/dL (3.4-5.0); Albumin/Globulin Ratio 0.6 (0.8-1.8); Alk Phos 84 U/L (50-136); Anion Gap 5 mmol/L (6-16); Aspartate Aminotrans (AST/SGOT 42 U/L (12-37); Bilirubin, Total 0.7 mg/dL (0.1-1.0); Blood Urea Nitrogen 8 mg/dL (8-24); CO2, Blood 30 mmol/L (21-32); Calcium, Blood 8.2 mg/dL (8.5-10.1); Chloride, Blood 103 mmol/L (98-108); Creatinine, Blood 0.62 mg/dL (0.60-1.20); Globulin, Blood 3.7 g/dL (2.2-4.0); Glomerular Filtration Rate >60 (60-); Glucose, Blood 99 mg/dL (70-99); Mean Corpuscular Volume 106 fL (80-100); Platelet Count 47 K/mm3 (150-400); Potassium, Blood 3.9 mmol/L (3.5-5.5); Sodium, Blood 138 mmol/L (136-145); Total Protein, Blood 5.8 g/dL (6.4-8.2)
== END 2018-05-16 23:56 | disposition home or self-care (01) ==
LOC: ER 18:18
PROVIDERS: Emergency Medicine
DX: T84.52XA Infection and inflammatory reaction due to internal left hip prosthesis, initial encounter (principal); J44.1 Chronic obstructive pulmonary disease with (acute) exacerbation; D64.9 Anemia, unspecified; D69.6 Thrombocytopenia, unspecified; Z88.8 Allergy status to other drugs, medicaments and biological substances; Z79.899 Other long term (current) drug therapy; I25.10 Atherosclerotic heart disease of native coronary artery without angina pectoris; I48.91 Unspecified atrial fibrillation
CPT/HCPCS: 71046; 80053; 85025; 93005; 93010; 93970; 94640; 96374; 96375; 99284-25; J2270; J2405

== ENCOUNTER 2018-05-30 10:31 | Inpatient (IN) | payer MEDICARE ==
[~2018-05-30] VITALS: Ht 180.3 cm; Wt 110.0 kg
[~2018-05-30 10:31] MED LIST changes: +ACET325 PO; +Acidophilus La100 GM PO; +BISA10S PR; +CEFAZOLIN SOD IV; +CEFAZOLIN2 GM/50 ML IV; +DULERA 200 MCG/13 GM INH; +FURO40 PO; +Furosemide40 MG PO; +Micro-K10 MEQ PO; +Milk Of Ma400 MG/5 M PO; +ROXICODONE5 MG PO
--- NOTE | 2018-05-30 11:24 | NUR ---
History, Chart, Medications and Allergies reviewed before start of procedure. Patient confirms NPO status and agrees with scheduled surgery. Patient reports not taking chlorhexidine prep prior to coming to the hospital.
--- NOTE | 2018-05-30 11:54 | NUR ---
POSITIONED FOR COMFORT. WAITING FOR DR AYALA TO CALL NURSE TO GIVE PRE-OP ORDERS. WILL REQUEST ANALGESIC WHEN DR AYALA ARRIVES OR CALLS BACK. CALL WAS MADE AT 0930 THIS MORNING.
--- NOTE | 2018-05-30 12:46 | NUR ---
KNEE HIGH CHINA HOSE WITH CALF PAS TO RLE.
--- NOTE | 2018-05-30 14:31 | NUR ---
05/30/18 1431 Luzmaria Ferro PT ENTERED OR [address] IN [address] DRAINING DARK YELLOW URINE. PLATELETS STARTED IN PRE OP AND INFUSING, DR SANTIAGO TO MONITOR.
--- NOTE | 2018-05-30 18:23 | NUR ---
1755 to room per bed, awake, alert.talkative-patient reports pain to left hip is 10/10. left hip dressing dry and intact. dual lumen PICC in place to left arm. patient asking for controls so he can waatch tv. condom catheter in place and clear yellow urine present to siddiqui bag
[2018-05-30 20:32] LABS: BODY FLUID RBC 0.035 (0-0); RBC Count, Synovial Fluid 35000 /mm3 (0-0); WBC Count, Synovial Fluid 7580 /mm3 (0-180)
[2018-05-30 21:45] LABS: Lymphs, Synovial Fluid 7 % (0-15); Monocytes/Macrophages, Synovia 15 % (0-65); Neutrophils, Synovial Fluid 78 % (0-24)
[2018-05-30 21:47] LABS: Color, Synovial Fluid Red (None-P Yel)
[2018-05-30 21:48] LABS: Appearance, Synovial Fluid Hazy (Clear)
[2018-05-31 05:33] LABS: BASOPHILS PERCENT AUTO 0 % (0-2); EOSINOPHILS PERCENT AUTO 0 % (0-6); Hematocrit 30.3 % (37.0-53.0); Hemoglobin 9.4 g/dL (13.5-17.5); IMMATURE GRAN ABSOLUTE AUTO 0.01 K/mm3 (0.00-0.10); IMMATURE GRAN PERCENT AUTO 0 % (0-1); LYMPHOCYTES ABSOLUTE AUTO 0.36 K/mm3 (0.84-5.20); LYMPHOCYTES PERCENT AUTO 10 % (21-46); MONOCYTES PERCENT AUTO 6 % (4-13); Mean Corpuscular HGB 33.7 pg (26.0-34.0); Mean Corpuscular Volume 109 fL (80-100); Mean Platelet Volume 11.4 fL (9.1-12.4); NEUTROPHILS ABSOLUTE AUTO 3.03 K/mm3 (1.96-9.15); NEUTROPHILS PERCENT AUTO 84 % (41-73); Platelet Count 66 K/mm3 (150-400); RDW Coefficient Variation 15.4 % (11.7-14.2); RDW Standard Deviation 61.4 fL (35.1-46.3); Red Blood Cell Count 2.79 M/mm3 (4.30-5.90)
[2018-05-31 06:08] LABS: Magnesium, Blood 1.8 mg/dL (1.6-2.4)
[2018-05-31 06:12] LABS: Anion Gap 6 mmol/L (6-16); Blood Urea Nitrogen 11 mg/dL (8-24); Bun/Creatinine Ratio 21.2 (12.0-20.0); CO2, Blood 25 mmol/L (21-32); Calcium, Blood 8.1 mg/dL (8.5-10.1); Chloride, Blood 104 mmol/L (98-108); Creatinine, Blood 0.52 mg/dL (0.60-1.20); Glomerular Filtration Rate >60 (60-); Glucose, Blood 183 mg/dL (70-99); Potassium, Blood 4.7 mmol/L (3.5-5.5); Sodium, Blood 135 mmol/L (136-145)
--- NOTE | 2018-05-31 08:42 | NUR ---
PHYSICAL THERAPY IN ROOM FOR ASSESSMENT AND TREATMENT.
--- NOTE | 2018-05-31 08:50 | NUR ---
SHIFT SUMMARY PT A&O X4 T/O SHIFT. NO ACUTE CHANGES. POD#1 I&D L HIP; DRESSING CDI; PAIN MANGED PER EMAR; ICE TO L HIP PT TOLERATED. CONDOM CATH IN PLACE; GOOD URINE OUT. O2 VIA NC; PT DENIES SOB. CALL LIGHT IN REACH. REPORT GIVEN TO DAY SHIFT RN.
--- NOTE | 2018-05-31 10:59 | NUR ---
PT REFUSED TO WORK WITH THERAPY THIS MORNING. THIS RN EDUCATED PT ON IMPORTANCE OF MOBILITY AND WORKING WITH THERAPY. HE WAS AGREEABLE TO TREATMENT AFTER EDUCATION. HE WAS ABLE TO STAND AND PIVOT TRANSFER WITH MOD ASSIST.
--- NOTE | 2018-05-31 14:46 | NUR ---
PT IS VERY AGGITATED, SWEARING AND DEMANDING THAT SOMEONE CALL THE CORRECTION HE WAS AT PREVIOSLY BECAUSE HE DOESN'T LIKE OUR CONDOM CATHS AND WANTS [facility] TO ORDER THE ONES FROM [facility]. HE IS REFUSING TO USE A URINAL. CONDOM CATH IN PLACE AND DRAINING AT THIS TIME.
--- NOTE | 2018-05-31 18:20 | NUR ---
SHIFT SUMMARY: DRESSING TO L HIP SATURATED X2. SPK WITH ; RCD ORDER TO PLACE WOUND VAC. AUDIOLOGIST PLACED WOUND VAC. GOOD SEAL. PAIN MANAGED PER EMAR. NO OTHER ACUTE CHANGES NOTED. WILL CTM UNTIL REPORT GIVEN TO NEXT SHIFT RN.
--- NOTE | 2018-06-01 07:50 | NUR ---
SHIFT SUMMARY PT A&O X4 T/O SHIFT. POD#2 I&D L HIP; PRAVENA WOUND VAC SEAL INTACT; 50 ML SS DRAINAGE. PAIN MANAGED PER EMAR. PPPX4. PT DENIES SOB, CP AND NAUSEA. CONDOM CATH PER PT PREFERENCE. BM USING BEDPAN; PT REFUSED OFFER TO ASSIST OOB TO USE BSC. [place]'S AND SCD'S TO BLE'S. CALL LIGHT IN REACH;PT DEMONSTRATES USE.
--- NOTE | 2018-06-01 19:14 | NUR ---
SHIFT SUMMARY PT EATING AND DRINKING WELL. PT BEEN ASSISTED WITH ADL'S PRN. PT BEEN MED FOR PAIN PRN. PT REFUSED OOB MULT TIMES TODAY BUT REPORTS MOVING AROUND IN BED WELL. NO SORES NOTED TO HEELS OR BOTTOM. PAS IN PLACE. PT HAS CONDOM CATH IN PLACE HE REPORTS "WEAR ONE ALL THE TIME". PT USES CALL LIGHT APPR. BEEN TO SEE PT.
--- NOTE | 2018-06-02 07:18 | NUR ---
SUMMARY: PT IS POD3 FOR L HIP I&D. NO CHANGE. PT HAS BEEN A/O, VSS. SURGICAL SITE WNL, WOUND VAC DRAININGE SMALL AMOUNT. PT POSITIONED FOR COMFORT AND L LEG ELEVATED. PT MEDICATED FOR PAIN Q6, PRN. PICC DRESSING CHANGED, PT TOLERATED WELL. ENCOURAGING MOBILITY. NO ACUTE SAFETY CONCERNS AT THIS TIME.
--- NOTE | 2018-06-02 11:49 | NUR ---
Patient was lying in bed and alert when I entered the room. Patient asked for his blinds to be opened which I did. Because therapeutic alliance is already established patient openly shared about feeling that he has PTSD over his hip infection and is struggling with fears and certain triggers from medical staff. I explored patient's coping skills and resources and mosque beliefs. I provided a calming presence, anxiety containment, companionship, pastoral counselling psychologist and prayer. Patient responded well and displayed evidence of reduced stress. Patient stated that my visit with him helped lift his weight and brought peace and janiya to him.
--- NOTE | 2018-06-02 18:21 | NUR ---
DISCHARGE PT TRANSFERRED VIA GOURNEY TO REHAB. PT AGREEABLE. REPORT CALLED.
== END 2018-06-02 18:21 | DRG 498 ==
LOC: ORSCMMR 10:31 → SURS 10:31 → ORSCMMR 16:58 → SURS 16:58
PROVIDERS: ADMIT Orthopaedic Surgery
PROC: 3E0U029 Introduction of Other Anti-infective into Joints, Open Approach (ICD-10-PCS; 2018-05-30)
PROC: 30233N1 Transfusion of Nonautologous Red Blood Cells into Peripheral Vein, Percutaneous Approach (ICD-10-PCS; 2018-05-30)
PROC: 0QBC0ZZ Excision of Left Lower Femur, Open Approach (ICD-10-PCS; principal; 2018-05-30 13:55)
DX: T84.621A Infection and inflammatory reaction due to internal fixation device of left femur, initial encounter (principal); D68.4 Acquired coagulation factor deficiency; B19.20 Unspecified viral hepatitis C without hepatic coma; D69.6 Thrombocytopenia, unspecified; I25.10 Atherosclerotic heart disease of native coronary artery without angina pectoris; I48.0 Paroxysmal atrial fibrillation; J44.9 Chronic obstructive pulmonary disease, unspecified; Z59.0 Homelessness; D53.9 Nutritional anemia, unspecified
CPT/HCPCS: 36430; 80048; 83735; 85025; 86900; 86901; 87070; 87075; 87205; 88108; 89051; 94640; 94760; 97162; 97530; C1713; J0690; J1100; J1170; J2250; J2405; J2710; J3010; J3370; J7120; P9035; P9053; Q0163

== ENCOUNTER → 2018-09-14 | Outpatient (CLI) | payer MEDICARE, OTHER | END | disposition home or self-care (01) | LOC: EDSTATUS 14:50 → LAB UVN 15:20 | DX: S72.042D Displaced fracture of base of neck of left femur, subsequent encounter for closed fracture with routine healing (principal); R26.89 Other abnormalities of gait and mobility; D69.59 Other secondary thrombocytopenia; Z96.642 Presence of left artificial hip joint | CPT/HCPCS: 85651; 86140 ==

== ENCOUNTER → 2018-10-03 | Outpatient (CLI) | payer MEDICARE, OTHER ==
[2018-10-03 08:29] LABS: Bilirubin, Urine Neg (Neg); Blood, Urine Neg (Neg); Glucose Qualitative, Urine Neg (Neg); Ketones, Urine Neg (Neg); Leukocyte Esterase, Urine Neg (Neg); Nitrite, Urine Neg (Neg); Protein, Urine Neg (Neg); Urobilinogen, Urine NORM (Normal); pH, Urine 6.5 (5.0-8.0)
[2018-10-03 08:40] LABS: Appearance, Urine Clear (Clear); Color, Urine Yellow (P-Yellow)
== END | disposition home or self-care (01) ==
LOC: LAB UVN 07:26 → EDSTATUS 11:23
DX: N39.0 Urinary tract infection, site not specified (principal)
CPT/HCPCS: 81003; 87086

== ENCOUNTER → 2018-11-21 | Outpatient (CLI) | payer MEDICARE, OTHER ==
[2018-11-21 14:16] LABS: Bilirubin, Urine Neg (Neg); Blood, Urine 3+ (Neg); Glucose Qualitative, Urine Neg (Neg); Hematocrit 37.9 % (37.0-53.0); Hemoglobin 12.7 g/dL (13.5-17.5); Ketones, Urine Neg (Neg); Leukocyte Esterase, Urine 1+ (Neg); Mean Corpuscular HGB 35.2 pg (26.0-34.0); Mean Corpuscular HGB Conc 33.5 g/dL (31.5-36.5); Mean Corpuscular Volume 105 fL (80-100); Nitrite, Urine Neg (Neg); Platelet Count 53 K/mm3 (150-400); Protein, Urine Neg (Neg); RDW Coefficient Variation 14.3 % (11.7-14.2); RDW Standard Deviation 55.2 fL (35.1-46.3); Red Blood Cell Count 3.61 M/mm3 (4.30-5.90); Specific Gravity, Urine 1.015 (1.003-1.022); Urobilinogen, Urine 2+ (Normal); White Blood Cell Count 8.58 K/mm3 (4.00-11.30)
[2018-11-21 14:28] LABS: Appearance, Urine Clear (Clear); Color, Urine Yellow (P-Yellow)
[2018-11-21 14:29] LABS: White Blood Cells, Urine 0-2 /hpf (0-5)
[2018-11-21 14:30] LABS: Bacteria Few /hpf; Hyaline Casts 0-2 /lpf (0-2); Squamous Epithelial Cells Rare /hpf (Few)
[2018-11-21 14:33] LABS: Anion Gap 6 mmol/L (6-16); Blood Urea Nitrogen 10 mg/dL (8-24); Bun/Creatinine Ratio 14.6 (12.0-20.0); CO2, Blood 26 mmol/L (21-32); Calcium, Blood 7.8 mg/dL (8.5-10.1); Chloride, Blood 106 mmol/L (98-108); Creatinine, Blood 0.69 mg/dL (0.60-1.20); Glomerular Filtration Rate >60 (60-); Glucose, Blood 85 mg/dL (70-99); Potassium, Blood 3.5 mmol/L (3.5-5.5); Sodium, Blood 138 mmol/L (136-145)
[2018-11-21 15:14] LABS: Influenza A Negative (NEGATIVE); Influenza B Negative (NEGATIVE)
== END | disposition home or self-care (01) ==
LOC: EDSTATUS 10:23 → LAB UVN 14:08
PROVIDERS: Nurse Practitioner Family
DX: N39.0 Urinary tract infection, site not specified (principal); R50.9 Fever, unspecified
CPT/HCPCS: 80048; 81001; 85027; 87086; 87804

== ENCOUNTER → 2019-10-07 | Outpatient (CLI) | payer MEDICARE, OTHER ==
[2019-10-07 05:39] LABS: BASOPHILS ABSOLUTE AUTO 0.02 K/mm3 (0.00-0.23); BASOPHILS PERCENT AUTO 1 % (0-2); EOSINOPHILS ABSOLUTE AUTO 0.17 K/mm3 (0.00-0.68); EOSINOPHILS PERCENT AUTO 5 % (0-6); Hematocrit 37.5 % (37.0-53.0); Hemoglobin 13.1 g/dL (13.5-17.5); IMMATURE GRAN ABSOLUTE AUTO 0.01 K/mm3 (0.00-0.10); IMMATURE GRAN PERCENT AUTO 0 % (0-1); LYMPHOCYTES ABSOLUTE AUTO 1.19 K/mm3 (0.84-5.20); LYMPHOCYTES PERCENT AUTO 33 % (21-46); MONOCYTES ABSOLUTE AUTO 0.55 K/mm3 (0.16-1.47); MONOCYTES PERCENT AUTO 15 % (4-13); Mean Corpuscular HGB 35.3 pg (26.0-34.0); Mean Corpuscular HGB Conc 34.9 g/dL (31.5-36.5); Mean Corpuscular Volume 101 fL (80-100); Mean Platelet Volume 11.1 fL (9.1-12.4); NEUTROPHILS ABSOLUTE AUTO 1.66 K/mm3 (1.96-9.15); NEUTROPHILS PERCENT AUTO 46 % (41-73); Platelet Count 71 K/mm3 (150-400); RDW Coefficient Variation 14.3 % (11.7-14.2); RDW Standard Deviation 52.7 fL (35.1-46.3); Red Blood Cell Count 3.71 M/mm3 (4.30-5.90)
[2019-10-07 05:52] LABS: Appearance, Urine Clear (Clear); Bilirubin, Urine Neg (Neg); Blood, Urine Neg (Neg); Color, Urine Yellow (P-Yellow); Glucose Qualitative, Urine Neg (Neg); Ketones, Urine Neg (Neg); Leukocyte Esterase, Urine Neg (Neg); Nitrite, Urine Neg (Neg); Protein, Urine Neg (Neg); Specific Gravity, Urine 1.015 (1.003-1.022); Urobilinogen, Urine NORM (Normal)
[2019-10-07 06:03] LABS: LDL/HDL RATIO 0.7
[2019-10-07 06:04] LABS: Alanine Aminotransfer (ALT/SGP 20 U/L (12-78); Albumin, Blood 2.8 g/dL (3.4-5.0); Albumin/Globulin Ratio 0.8 (0.8-1.8); Alk Phos 112 U/L (50-136); Anion Gap 6 mmol/L (6-16); Aspartate Aminotrans (AST/SGOT 35 U/L (12-37); Bilirubin, Total 0.9 mg/dL (0.1-1.0); Blood Urea Nitrogen 6 mg/dL (8-24); Bun/Creatinine Ratio 10.4 (12.0-20.0); CHOL/HDL RATIO 1.9; CO2, Blood 26 mmol/L (21-32); Calcium, Blood 7.7 mg/dL (8.5-10.1); Chloride, Blood 108 mmol/L (98-108); Cholesterol 106 mg/dL (50-200); Creatinine, Blood 0.58 mg/dL (0.60-1.20); Globulin, Blood 3.5 g/dL (2.2-4.0); Glomerular Filtration Rate >60 (60-); Glucose, Blood 81 mg/dL (70-99); HDL Cholesterol 57 mg/dL (>39); Low Density Lipoprotein Chol 38 mg/dL (0-110); Potassium, Blood 3.9 mmol/L (3.5-5.5); Sodium, Blood 140 mmol/L (136-145); Total Protein, Blood 6.3 g/dL (6.4-8.2); Triglycerides 54 mg/dL (30-160); Very Low Density Lipoprot Chol 10 mg/dL (6-32)
== END | disposition home or self-care (01) ==
LOC: LAB UVN 02:50 → EDSTATUS 11:31
PROVIDERS: Family Medicine
DX: N39.0 Urinary tract infection, site not specified (principal); R50.9 Fever, unspecified; D69.59 Other secondary thrombocytopenia; I48.21 Permanent atrial fibrillation
CPT/HCPCS: 80053; 80061; 81003; 85025; 87086

== ENCOUNTER → 2019-10-21 | Outpatient (CLI) | payer MEDICARE, OTHER ==
[2019-10-21 13:47] LABS: Stool Occult Bld Immuno 1 Negative (NEGATIVE)
== END | disposition home or self-care (01) ==
LOC: EDSTATUS 09:40 → LAB UVN 09:47
PROVIDERS: Family Medicine
DX: S72.042D Displaced fracture of base of neck of left femur, subsequent encounter for closed fracture with routine healing (principal); D64.9 Anemia, unspecified; D69.59 Other secondary thrombocytopenia
CPT/HCPCS: G0328

== ENCOUNTER → 2019-11-06 | Outpatient (CLI) | payer MEDICARE, OTHER ==
[2019-11-06 15:04] LABS: Stool Occult Bld Immuno 1 Negative (NEGATIVE)
== END | disposition home or self-care (01) ==
LOC: LAB UVN 04:45 → LAB RH 04:45 → EDSTATUS 13:45
PROVIDERS: Internal Medicine Hematology & Oncology
DX: Z12.11 Encounter for screening for malignant neoplasm of colon (principal)
CPT/HCPCS: 82274

== ENCOUNTER → 2019-11-11 | Outpatient (CLI) | payer MEDICARE, OTHER | END | disposition home or self-care (01) | LOC: LAB UVN 00:10 → EDSTATUS 13:56 | DX: T84.52XD Infection and inflammatory reaction due to internal left hip prosthesis, subsequent encounter (principal); S72.042D Displaced fracture of base of neck of left femur, subsequent encounter for closed fracture with routine healing | CPT/HCPCS: 87070; 87077; 87147; 87186; 87205 ==

== ENCOUNTER → 2019-12-08 | Outpatient (CLI) | payer MEDICARE, OTHER | END | disposition home or self-care (01) | LOC: LAB UVN 06:59 → EDSTATUS 15:09 | DX: T84.52XD Infection and inflammatory reaction due to internal left hip prosthesis, subsequent encounter (principal) | CPT/HCPCS: 87070; 87077; 87147; 87186; 87205 ==

== ENCOUNTER → 2019-12-29 | Outpatient (CLI) | payer MEDICARE, OTHER | END | disposition home or self-care (01) | LOC: LAB 17:40 → LAB SHORT 17:40 | DX: T84.7XXD Infection and inflammatory reaction due to other internal orthopedic prosthetic devices, implants and grafts, subsequent encounter (principal) | CPT/HCPCS: 85651; 86140; 87070; 87077; 87147; 87186; 87205 ==